=== PATIENT | female | born 1980 | race Caucasian/White ===

== ENCOUNTER 2019-02-27 12:40 | Emergency (ER) | payer OTHER ==
[~2019-02-27] VITALS: Ht 162.6 cm; Wt 127.0 kg
[~2019-02-27 12:40] MED LIST: TRAMADOL HCL50 M1; Z.0.DIFLUNISAL500 MG; Z.0.VALIUM10 MG; [UNRECOGNIZED DRUG - OTHER]
--- OUTSIDE RECORDS SUMMARY | 2019-02-27 12:43 | XMS REPORT | Summary of Care ---
Author Author [facility] Organization [facility] Neurosurgery [facility] Address Unknown Phone Unavailable Encounter LENO Carrera([place]) [phone] Date(s): 05/29/17 - 05/29/17 [facility] Neurosurgery [facility] [address], [address] [place] [phone] Discharge Disposition: Home or Self Care Attending Physician: Quinton Hare MD Referring Physician: Jaime Rust DO Vital Signs Most recent to 1 oldest [Reference Range]: Height 162.56 cm (05/29/17 10:15 AM) Temperature Oral 98.0 DegF [96.4-99.1 DegF] (05/29/17 10:15 AM) Blood Pressure 112/68 mmHg [90-140/60-90 mmHg] (05/29/17 10:15 AM) Peripheral Pulse 103 bpm Rate [60-100 bpm] *HI* (05/29/17 10:15 AM) Weight 128.636 kg (05/29/17 10:15 AM) Body Mass Index 48.68 m2 (05/29/17 10:15 AM) Problem List Condition Effective Dates Status Health Status Informant GERD Active (gastroesophageal reflux disease)(Confirmed) Migraine(Confirmed) Resolved Morbid Active obesity(Confirmed) Morbid Active obesity(Confirmed) Trigeminal Resolved neuralgia(Confirmed) Trigeminal Active neuralgia(Confirmed) Allergies, Adverse Reactions, Alerts Substance Reaction Severity Status penicillins Active amoxicillin Active Medications tramadol 50 mg oral tablet 50 mg=1 tab, PO, Q4H, prn pain, # 30 tab, 0 Refill(s), called to pharmacy Start Date: 05/29/17 Stop Date: 06/08/17 Status: Ordered Results No data available for this section Immunizations No data available for this section Procedures Procedure Date Related Diagnosis Body Site Appendectomy Caesarean section Cholecystectomy Tonsillectomy Social History Social History Type Response Substance Abuse Use: None. Alcohol Current, Frequency: 1-2 times per week. Smoking Status Current some day smoker; Type: Cigarettes; Previous treatment: None; Ready to change: No; Concerns about tobacco use in household: No; Exposure to Tobacco Smoke None; Cigarette Smoking Last 365 Days Yes; Reg Smoking Cessation Counseling No Assessment and Plan No data available for this section
--- OUTSIDE RECORDS SUMMARY | 2019-02-27 12:43 | XMS REPORT | Summary of Care ---
Author Author [facility] Organization [facility] [place] Address Unknown Phone Unavailable Encounter LENO Carrera([place]) [phone] Date(s): 08/13/17 - 08/13/17 [facility] [address], [address] [place], [place] [address] [phone] Discharge Disposition: Home or Self Care Attending Physician: Thu Sterling NP Referring Physician: Jaime Rust DO Vital Signs Most recent to 1 oldest [Reference Range]: Height 162.56 cm (08/13/17 10:57 AM) Temperature Oral 98 DegF [96.4-99.1 DegF] (08/13/17 10:57 AM) Blood Pressure 128/79 mmHg [90-140/60-90 mmHg] (08/13/17 10:57 AM) Peripheral Pulse 76 bpm Rate [60-100 bpm] (08/13/17 10:57 AM) Weight 132.636 kg (08/13/17 10:57 AM) Body Mass Index 50.19 m2 (08/13/17 10:57 AM) Problem List Condition Effective Dates Status Health Status Informant GERD Active (gastroesophageal reflux disease)(Confirmed) Migraine(Confirmed) Resolved Morbid Active obesity(Confirmed) Morbid Active obesity(Confirmed) Trigeminal Resolved neuralgia(Confirmed) Trigeminal Active neuralgia(Confirmed) Allergies, Adverse Reactions, Alerts Substance Reaction Severity Status penicillins Active amoxicillin Active Medications No Known Medications Results No data available for this section Immunizations No data available for this section Procedures Procedure Date Related Diagnosis Body Site Status Appendectomy Completed Caesarean section Completed Cholecystectomy Completed Microvascular decompression surgery of Completed cranial nerve Tonsillectomy Completed Social History Social History Type Response Substance Abuse Use: None. Alcohol Current Smoking Status Current every day smoker; Type: Cigarettes; Previous treatment: None; Ready to change: No; Concerns about tobacco use in household: No; Exposure to Tobacco Smoke pt smokes daily; Cigarette Smoking Last 365 Days Yes; Reg Smoking Cessation Counseling No entered on: 08/13/17 Assessment and Plan No data available for this section
--- OUTSIDE RECORDS SUMMARY | 2019-02-27 12:43 | XMS REPORT | Continuity of Care Document ---
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 KNEE ARTHROSCOPY Active 05/17/2018 [facility] TRIGEMINAL NERALGIA Active 03/29/2017 [facility] Muscle weakness (generalized) 01/14/2019 [facility] Difficulty in walking, not elsewhere classified 01/14/2019 [facility] Pain in left knee 01/14/2019 [facility] Stiffness of left knee, not elsewhere classified 01/14/2019 [facility] Gastroesophageal reflux disease (disorder) Active Problem 01/14/2019 [facility] [place] Migraine (disorder) Resolved Problem 01/14/2019 [facility] [place] Morbid obesity (disorder) Active Problem 01/14/2019 [facility] Trigeminal neuralgia (disorder) Resolved Problem 01/14/2019 [facility] Nicotine dependence, cigarettes, uncomplicated 12/11/2018 [facility] 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 (Same as: Tylenol) Inactive 05/24/2018 [facility] Roxicodone 5 mg, 1 tab, Route: PO, Drug form: TAB, Q4H, PRN Pain Score 4-6, Start date: 05/24/18 13:06:00 COPY MANAGER, Duration: 30 day, Stop date: 06/23/18 13:05:00 CSTNotes: (Same as: Roxicodone) Inactive 05/24/2018 [facility] Ondansetron 4 mg, Route: IVP, ONCE, Dosing Weight 128.864, kg, PRN Nausea & Vomiting, Start date: 05/24/18 12:52:00 COPY MANAGER Inactive 05/24/2018 [facility] Naloxone 0.1 mg, Route: SUB-Q, Q6H, Dosing Weight 128.864, kg, PRN Itching, Start date: 05/24/18 12:52:00 COPY MANAGER, Duration: 30 day, Stop date: 06/23/18 12:51:00 COPY MANAGER Inactive 05/24/2018 [facility] Meperidine 12.5 mg, Route: IVP, Q30Min, Dosing Weight 128.864, kg, PRN Other -See Comment, For shivering, Start date: 05/24/18 12:52:00 COPY MANAGER, Duration: 2 doses or times, Stop date: Limited # of times Inactive 05/24/2018 [facility] Flumazenil 0.2 mg, Route: IVP, PRN, Dosing Weight 128.864, kg, PRN Benzodiazepine Reversal, Initial dose, Start date: 05/24/18 12:52:00 COPY MANAGER, Duration: 30 day, Stop date: 06/23/18 12:51:00 COPY MANAGER Inactive 05/24/2018 [facility] Oxycodone 10 mg, Route: PO, Drug form: TAB, Q4H, Dosing Weight 128.864, kg, PRN Pain Score 7-10, Start date: 05/24/18 12:52:00 COPY MANAGER, Duration: 30 day, Stop date: 06/23/18 12:51:00 COPY MANAGER Inactive 05/24/2018 [facility] Fentanyl 25 microgram, Route: IVP, Q5Min, Dosing Weight 128.864, kg, PRN Pain Score 4-6, Priority: Routine, Start date: 05/24/18 12:52:00 COPY MANAGER, Duration: 4 doses or times, Stop date: Limited # of times Inactive 05/24/2018 [facility] Hydromorphone 0.5 mg, Route: IVP, Q5Min, Dosing Weight 128.864, kg, PRN Pain Score 7-10, Start date: 05/24/18 12:52:00 COPY MANAGER, Duration: 4 doses or times, Stop date: Limited # of times Inactive 05/24/2018 [facility] Hydralazine 10 mg, Route: IVP, Q20Min, Dosing Weight 128.864, kg, PRN Elevated BP, Start date: 05/24/18 12:52:00 COPY MANAGER, Duration: 2 doses or times, Stop date: Limited # of times Inactive 05/24/2018 [facility] Labetalol 10 mg, Route: IVP, Q5Min, Dosing Weight 128.864, kg, PRN Elevated BP, Start date: 05/24/18 12:52:00 COPY MANAGER, Duration: 5 doses or times, Stop date: Limited # of times Inactive 05/24/2018 [facility] Diphenhydramine 12.5 mg, Route: IVP, Drug form: INJ, Q6H, Dosing Weight 128.864, kg, PRN Itching, Start date: 05/24/18 12:52:00 COPY MANAGER, Duration: 30 day, Stop date: 06/23/18 12:51:00 COPY MANAGER Inactive 05/24/2018 [facility] Albuterol 0.83 MG/ML Inhalant Solution 2.49 mg, Route: NEB, Q20Min, Dosing Weight 128.864, kg, PRN Wheezing, Priority: STAT, Start date: 05/24/18 12:52:00 COPY MANAGER, Duration: 30 day, Stop date: 06/23/18 12:51:00 COPY MANAGER Inactive 05/24/2018 [facility] Promethazine 6.25 mg, Route: IVPB, ONCE, Dosing Weight 128.864, kg, PRN Nausea & Vomiting, Start date: 05/24/18 12:52:00 COPY MANAGER Inactive 05/24/2018 [facility] 72 HR Scopolamine 0.0139 MG/HR Transdermal Patch 1 patch, Route: TOP, Drug Form: ERFILM, Dosing Weight 128.864, kg, ONCE, Apply behind ear. Avoid use in elderly., Start date: 05/24/18 12:52:00 COPY MANAGER, Stop date: 05/24/18 12:52:00 COPY MANAGER Inactive 05/24/2018 [facility] neostigmine (ANES) Route: IV, Drug form: INJ, ONCE, Stop date: 05/24/18 12:49:00 COPY MANAGER Inactive 05/24/2018 [facility] glycopyrrolate (ANES) Route: IV, Drug form: INJ, ONCE, Stop date: 05/24/18 12:49:00 COPY MANAGER Inactive 05/24/2018 [facility] ketOROLAC (ANES) IV, ONCE Inactive 05/24/2018 [facility] Zofran 4 mg, 2 mL, Route: IV, Drug form: INJ, Q8H, Dosing Weight 128.864, kg, PRN Nausea, Start date: 05/24/18 12:27:00 COPY MANAGER, Duration: 30 day, Stop date: 06/23/18 12:26:00 CSTNotes: (Same as: Zofran) MEDICATION WASTE Product Size: 4 mg Product Wasted: ___ mg Inactive 05/24/2018 [facility] Acetaminophen 325 MG / Oxycodone Hydrochloride 5 MG Oral Tablet [Percocet 5/325] 2 tab, Route: PO, Drug Form: TAB, Dosing Weight 128.864, kg, Q4H, PRN Pain, Start date: 05/24/18 12:27:00 COPY MANAGER, Duration: 30 day, Stop date: 06/23/18 12:26:00 COPY MANAGER Inactive 05/24/2018 [facility] Morphine 2 mg, 1 mL, Route: IVP, Drug form: SOLN, Q3H, Dosing Weight 128.864, kg, PRN Pain Score 1-3, Start date: 05/24/18 12:27:00 COPY MANAGER, Duration: 30 day, Stop date: 06/23/18 12:26:00 COPY MANAGER Inactive 05/24/2018 [facility] rocuronium (ANES) Route: IV, Drug form: INJ, ONCE, Stop date: 05/24/18 11:24:00 COPY MANAGER Inactive 05/24/2018 [facility] succinylcholine (ANES) Route: IV, Drug form: INJ, ONCE, Stop date: 05/24/18 11:20:00 COPY MANAGER Inactive 05/24/2018 [facility] dexamethasone (ANES) Route: IV, Drug form: INJ, ONCE, Stop date: 05/24/18 11:20:00 COPY MANAGER Inactive 05/24/2018 [facility] Cleocin Phosphate (ANES) Route: IV, Drug form: INJ, ONCE, Stop date: 05/24/18 11:20:00 COPY MANAGER Inactive 05/24/2018 [facility] acetaminophen (ANES) Route: IV, Drug form: INJ, ONCE, Stop date: 05/24/18 11:20:00 COPY MANAGER Inactive 05/24/2018 [facility] midazolam (ANES) Route: IV, Drug form: SOLN, ONCE, Stop date: 05/24/18 11:19:00 COPY MANAGER Inactive 05/24/2018 [facility] propofol (ANES) Route: IV, Drug form: INJ, ONCE, Stop date: 05/24/18 11:19:00 COPY MANAGER Inactive 05/24/2018 [facility] lidocaine (ANES) Route: IV, Drug form: INJ, ONCE, Stop date: 05/24/18 11:19:00 COPY MANAGER Inactive 05/24/2018 [facility] fentaNYL (ANES) Route: IV, Drug form: INJ, ONCE, Stop date: 05/24/18 11:19:00 COPY MANAGER Inactive 05/24/2018 [facility] ondansetron (ANES) Route: IV, Drug form: INJ, ONCE, Stop date: 05/24/18 11:14:00 COPY MANAGER Inactive 05/24/2018 [facility] Lactated Ringers Injection IV (ANES) 1000 mL Route: IV, Total Volume: 1,000, Start date: 05/24/18 10:32:00 COPY MANAGER, Stop date: 05/24/18 11:32:00 COPY MANAGER Inactive 05/24/2018 [facility] 72 HR Scopolamine 0.0139 MG/HR Transdermal Patch 1 patch, Route: TOP, Dosing Weight 129.091, kg, ONCE, Start date: 05/24/18 9:10:00 COPY MANAGER, Stop date: 05/24/18 9:10:00 COPY MANAGER Inactive 05/24/2018 [facility] Calcium Chloride 0.0014 MEQ/ML / Potassium Chloride 0.004 MEQ/ML / Sodium Chloride 0.103 MEQ/ML / Sodium Lactate 0.028 MEQ/ML Injectable Solution 1,000 mL, Rate: 25 ml/hr, Infuse over: 40 hr, Route: IV, Dosing Weight 129.091 kg, Total Volume: 1,000, Start date: 05/24/18 8:49:00 COPY MANAGER, Duration: 30 day, Stop date: 06/23/18 8:48:00 COPY MANAGER, 2.46, m2 Inactive 05/24/2018 [facility] ceFAZolin + Sodium Chloride 0.9% IV 100 mL 2 gm, Route: IVPB, ONCALL, Start date: 05/24/18 6:00:00 COPY MANAGER, Duration: 1 doses or times, ABX Indication: Surgical ProphylaxisNotes: (Same As: Jessica Ochoa) MEDICATION WASTE Product Size: 1000 mg Product Wasted: ___ mg Inactive 05/24/2018 [facility] diazepam 10 mg oral tablet 10 mg=1 tab, PO, TID, 0 Refill(s) Active 05/23/2018 [facility] Divalproex Sodium 500 MG Enteric Coated Tablet 500 mg=1 tab, PO, TID, 0 Refill(s) Active 05/23/2018 [facility] amitriptyline 25 mg oral tablet 25 mg=1 tab, PO, Bedtime, 0 Refill(s) Active 05/23/2018 [facility] tramadol hydrochloride 50 MG Oral Tablet 50 mg=1 tab, PO, Q4H, prn pain, # 30 tab, 0 Refill(s), called to pharmacy Active 05/29/2017 [facility] Flexeril 10 mg, 1 tab, Route: PO, Drug form: TAB, TID, Dosing Weight 127.273, kg, PRN Spasm, Start date: 05/17/17 10:38:00 COPY MANAGER, Duration: 30 day, Stop date: 06/16/17 10:37:00 CSTNotes: (Same As: Flexeril) No Longer Active 05/17/2017 [facility] heparin sodium, porcine 2500 UNT/ML Injectable Solution 5,000 unit, 1 mL, Route: SUB-Q, Drug form: INJ, Q8H, Dosing Weight 127.273, kg, Start date: 05/17/17 8:00:00 COPY MANAGER, Duration: 30 day, Stop date: 06/16/17 0:00:00 CSTNotes: porcine heparin No Longer Active 05/17/2017 [facility] Cyclobenzaprine hydrochloride 10 MG Oral Tablet [Flexeril] 10 mg, PO, TID, PRN as needed for muscle spasm, # 30 tab, 0 Refill(s) No Longer Active 05/17/2017 [facility] Docusate Sodium 100 MG Oral Capsule 100 mg, PO, Q12H, PRN as needed for constipation, # 60 tab, 0 Refill(s) Active 05/17/2017 [facility] Ondansetron 4 MG Oral Tablet [Zofran] 4 mg=1 tab, PO, Q8H, PRN Nausea/vomiting, # 30 tab, 0 Refill(s) Active 05/17/2017 [facility] Acetaminophen 325 MG / Hydrocodone Bitartrate 10 MG Oral Tablet [Clemons 10/325] 1 tab, PO, Q4H, PRN for pain, X 10 day, # 60 tab, 0 Refill(s) Active 05/17/2017 [facility] Promethazine Hydrochloride 12.5 MG Oral Tablet [Phenergan] 12.5 mg=1 tab, PO, Q4H, PRN Nausea & Vomiting, # 60 tab, 0 Refill(s) Active 05/17/2017 [facility] tramadol hydrochloride 50 MG Oral Tablet 50 mg=1 tab, PO, Q4H, PRN Pain, X 10 day, # 60 tab, 0 Refill(s) Active 05/17/2017 [facility] Lipitor 20 mg, 1 tab, Route: PO, Drug form: TAB, Bedtime, Dosing Weight 127.273, kg, Start date: 05/16/17 21:00:00 COPY MANAGER, Duration: 30 day, Stop date: 06/14/17 21:00:00 CSTNotes: (Same As: Lipitor) No Longer Active 05/17/2017 [facility] vancomycin (SCIP) 1,000 mg, Route: IVPB, Drug form: INJ, [id number], Dosing Weight 127.273, kg, TIME CRITICAL MEDICATION, Start date: 05/16/17 20:00:00 COPY MANAGER, Duration: 2 doses or times, Stop date: 05/17/17 8:00:00 COPY MANAGER, ABX Indication: Surgical ProphylaxisNotes: TIME CRITICAL MEDICATION (Same As: Vancocin) Infusion rate 2001 mg: infuse over 2.5 hours MEDICATION WASTE Product Size: 1000 mg Product Wasted: ___ mg No Longer Active 05/17/2017 [facility] Depakote 250 mg oral enteric coated tablet 500 mg, 2 tab, Route: PO, Drug form: ECTAB, ONCE, Priority: NOW, Start date: 05/16/17 17:28:00 COPY MANAGER, Stop date: 05/16/17 17:28:00 CSTNotes: (Same as: Depakote Delayed Release) Do not confuse with the extended-release tablet. Delayed absorption, enteric coated tablet. Do not crush Inactive 05/16/2017 [facility] Depakote 250 mg oral enteric coated tablet 750 mg=3 tab, PO, BID Active 05/16/2017 [facility] glycopyrrolate (ANES) Route: IV, Drug form: INJ, ONCE, Stop date: 05/16/17 12:31:00 COPY MANAGER Inactive 05/16/2017 [facility] neostigmine (ANES) Route: IV, Drug form: INJ, ONCE, Stop date: 05/16/17 12:31:00 COPY MANAGER Inactive 05/16/2017 [facility] Promethazine 6.25 mg, Route: IVPB, ONCE, Dosing Weight 127.273, kg, PRN Nausea & Vomiting, Start date: 05/16/17 12:23:00 COPY MANAGER Inactive 05/16/2017 [facility] ondansetron (ANES) Route: IV, Drug form: INJ, ONCE, Stop date: 05/16/17 11:48:00 COPY MANAGER Inactive 05/16/2017 [facility] famotidine (ANES) Route: IV, Drug form: INJ, ONCE, Stop date: 05/16/17 11:23:00 COPY MANAGER Inactive 05/16/2017 [facility] acetaminophen (ANES) 10 mg Route: IV, Drug form: INJ, Start date: 05/16/17 10:23:00 COPY MANAGER, Stop date: 05/16/17 11:23:00 COPY MANAGER Inactive 05/16/2017 [facility] Hydromorphone 0.5 mg, 0.25 mL, Route: IVP, Drug form: INJ, Q5Min, Dosing Weight 127.273, kg, PRN Pain Score 7-10, Start date: 05/16/17 9:33:00 COPY MANAGER, Duration: 4 doses or times, Stop date: 05/17/17 0:00:00 CSTNotes: Same as Dilaudid Inactive 05/16/2017 [facility] Flumazenil 0.2 mg, 2 mL, Route: IVP, Drug form: INJ, PRN, Dosing Weight 127.273, kg, PRN Benzodiazepine Reversal, Initial dose, Start date: 05/16/17 9:33:00 COPY MANAGER, Duration: 30 day, Stop date: 06/15/17 9:32:00 CS TNotes: (Same as: Romazicon) Inactive 05/16/2017 [facility] Dexamethasone 4 mg, 1 mL, Route: IVP, Drug form: INJ, ONCE, Dosing Weight 127.273, kg, PRN Nausea & Vomiting, Start date: 05/16/17 9:33:00 CSTNotes: Concentration: 4mg/ml Inactive 05/16/2017 [facility] Ondansetron 4 mg, 2 mL, Route: IVP, Drug form: INJ, ONCE, Dosing Weight 127.273, kg, PRN Nausea & Vomiting, Start date: 05/16/17 9:33:00 CSTNotes: (Same as: Zofran) MEDICATION WASTE Product Size: 4 mg Product Wasted: ___ mg Inactive 05/16/2017 [facility] Diphenhydramine 12.5 mg, 0.25 mL, Route: IVP, Drug form: INJ, Q6H, Dosing Weight 127.273, kg, PRN Itching, Start date: 05/16/17 9:33:00 COPY MANAGER, Duration: 30 day, Stop date: 06/15/17 9:32:00 CSTNotes: (Same as: Benadryl) Inactive 05/16/2017 [facility] Naloxone 0.4 mg, 1 mL, Route: IVP, Drug form: INJ, Q2MIN, Dosing Weight 127.273, kg, PRN Narcotic Reversal, Start date: 05/16/17 9:33:00 COPY MANAGER, Duration: 8 doses or times, Stop date: 05/17/17 0:00:00 CSTNotes: Same as Narcan Inactive 05/16/2017 [facility] Oxycodone 5 mg, 1 tab, Route: PO, Drug form: TAB, Q4H, Dosing Weight 127.273, kg, PRN Pain Score 4-6, Start date: 05/16/17 9:33:00 COPY MANAGER, Duration: 30 day, Stop date: 06/15/17 9:32:00 CSTNotes: (Same as: Roxicodone) Inactive 05/16/2017 [facility] Hydralazine 10 mg, 0.5 mL, Route: IVP, Drug form: INJ, Q20Min, Dosing Weight 127.273, kg, PRN Elevated BP, Start date: 05/16/17 9:33:00 COPY MANAGER, Duration: 2 doses or times, Stop date: 05/17/17 0:00:00 CSTNotes: (Same as: Apresoline) Push over 5 minutes Inactive 05/16/2017 [facility] Labetalol 10 mg, 2 mL, Route: IVP, Drug form: INJ, Q5Min, Dosing Weight 127.273, kg, PRN Elevated BP, Start date: 05/16/17 9:33:00 COPY MANAGER, Duration: 5 doses or times, Stop date: 05/17/17 0:00:00 COPY MANAGER Inactive 05/16/2017 [facility] dexamethasone (ANES) Route: IV, Drug form: INJ, ONCE, Stop date: 05/16/17 9:23:00 COPY MANAGER Inactive 05/16/2017 [facility] midazolam (ANES) Route: IV, Drug form: SOLN, ONCE, Stop date: 05/16/17 9:18:00 COPY MANAGER Inactive 05/16/2017 [facility] lidocaine (ANES) Route: IV, Drug form: INJ, ONCE, Stop date: 05/16/17 9:18:00 COPY MANAGER Inactive 05/16/2017 [facility] remifentanil (ANES) Route: IV, Drug form: INJ, ONCE, Stop date: 05/16/17 9:18:00 COPY MANAGER Inactive 05/16/2017 [facility] propofol (ANES) Route: IV, Drug form: INJ, ONCE, Stop date: 05/16/17 9:13:00 COPY MANAGER Inactive 05/16/2017 [facility] rocuronium (ANES) Route: IV, Drug form: INJ, ONCE, Stop date: 05/16/17 9:13:00 COPY MANAGER Inactive 05/16/2017 [facility] fentaNYL (ANES) Route: IV, Drug form: INJ, ONCE, Stop date: 05/16/17 9:13:00 COPY MANAGER Inactive 05/16/2017 [facility] ePHEDrine (ANES) Route: IV, Drug form: INJ, ONCE, Stop date: 05/16/17 9:08:00 COPY MANAGER Inactive 05/16/2017 [facility] phenylephrine (ANES) Route: IV, Drug form: INJ, ONCE, Stop date: 05/16/17 9:08:00 COPY MANAGER Inactive 05/16/2017 [facility] Saline Flush 0.9% 10 ml, Route: IVP, Drug Form: INJ, Dosing Weight 127.273, kg, Q12H, Start date: 05/16/17 9:00:00 COPY MANAGER, Duration: 30 day, Stop date: 06/14/17 21:00:00 CSTNotes: (Same as: BD Posiflush) No Longer Active 05/16/2017 [facility] Docusate 100 mg, 1 cap, Route: PO, Drug form: CAP, Q12H, Dosing Weight 127.273, kg, Start date: 05/16/17 9:00:00 COPY MANAGER, Duration: 30 day, Stop date: 06/14/17 21:00:00 CSTNotes: (Same as: Colace) (Do Not Crush) No Longer Active 05/16/2017 [facility] sennosides, LONGTERM 8.6 mg, 1 tab, Route: PO, Drug Form: TAB, Dosing Weight 127.273, kg, Q12H, Start date: 05/16/17 9:00:00 COPY MANAGER, Duration: 30 day, Stop date: 06/14/17 21:00:00 CSTNotes: (Same as: Senokot) No Longer Active 05/16/2017 [facility] Vancomycin 1,000 mg, Route: IVPB, Drug form: INJ, [id number], Dosing Weight 127.273, kg, TIME CRITICAL MEDICATION, Start date: 05/16/17 9:00:00 COPY MANAGER, Duration: 2 doses or times, Stop date: 05/16/17 21:00:00 COPY MANAGER, ABX I ndication: Surgical ProphylaxisNotes: TIME CRITICAL MEDICATION (Same As: Vancocin) Infusion rate 2001 mg: infuse over 2.5 hours MEDICATION WASTE Product Size: 1000 mg Product Wasted: ___ mg Inactive 05/16/2017 [facility] Protonix 40 mg, 1 tab, Route: PO, Drug form: ECTAB, Daily, Start date: 05/16/17 9:00:00 COPY MANAGER, Duration: 30 day, Stop date: 06/14/17 9:00:00 CSTNotes: Tablet should not be chewed or crushed. (Same as: Protonix) No Longer Active 05/16/2017 [facility] Prilosec 20 mg, Route: PO, Drug form: DRC, Daily, Dosing Weight 127.273, kg, Start date: 05/16/17 9:00:00 COPY MANAGER, Duration: 30 day, Stop date: 06/14/17 9:00:00 COPY MANAGER Inactive 05/16/2017 [facility] Lexapro 20 mg, 2 tab, Route: PO, Drug form: TAB, Daily, Dosing Weight 127.273, kg, Start date: 05/16/17 9:00:00 COPY MANAGER, Duration: 30 day, Stop date: 06/14/17 9:00:00 CSTNotes: (Same as: Lexapro) No Longer Active 05/16/2017 [facility] divalproex sodium 250 mg oral enteric coated tablet (Depakote) 750 mg, 3 tab, Route: PO, Drug form: ECTAB, BID, Dosing Weight 127.273, kg, Start date: 05/16/17 9:00:00 COPY MANAGER, Stop date: 06/14/17 20:00:00 CSTNotes: (Same as: Depakote Delayed Release) Do not confuse with the extended-release tablet. Delayed absorption, enteric coated tablet. No Longer Active 05/16/2017 [facility] propofol (ANES) 10 mg Route: IV, Drug form: INJ, Start date: 05/16/17 8:38:00 COPY MANAGER, Stop date: 05/16/17 9:38:00 COPY MANAGER Inactive 05/16/2017 [facility] Sodium Chloride 0.9% IV (ANES) 1000 mL Route: IV, Total Volume: 1,000, Start date: 05/16/17 8:00:00 COPY MANAGER, Stop date: 05/16/17 9:00:00 COPY MANAGER Inactive 05/16/2017 [facility] remifentanil (ANES) 2 mg Route: IV, Drug form: INJ, Start date: 05/16/17 7:55:00 COPY MANAGER, Stop date: 05/16/17 8:55:00 COPY MANAGER Inactive 05/16/2017 [facility] Sodium Chloride 0.9% IV (ANES) 235 mL + vancomycin (ANES) 1500 mg Route: IV, Drug form: INJ, Start date: 05/16/17 7:45:00 COPY MANAGER, Stop date: 05/16/17 8:45:00 COPY MANAGER Inactive 05/16/2017 [facility] dexmedetomidine (ANES) 200 microgram Route: IV, Drug form: INJ, Start date: 05/16/17 7:45:00 COPY MANAGER, Stop date: 05/16/17 8:45:00 COPY MANAGER Inactive 05/16/2017 [facility] tramadol hydrochloride 50 MG Oral Tablet 50 mg, 1 tab, Route: PO, Drug form: TAB, Q4H, Dosing Weight 127.273, kg, PRN Pain Score 1-3, Start date: 05/16/17 7:32:00 COPY MANAGER, Duration: 30 day, Stop date: 06/15/17 7:31:00 CSTNotes: (Same As: Ultram) No Longer Active 05/16/2017 [facility] Dilaudid 0.5 mg, 0.25 mL, Route: IVP, Drug form: INJ, Q4H, Dosing Weight 127.273, kg, PRN Pain Score 7-10, Start date: 05/16/17 7:32:00 COPY MANAGER, Stop date: 06/15/17 7:31:00 CSTNotes: Same as Dilaudid No Longer Active 05/16/2017 [facility] Saline Flush 0.9% 10 ml, Route: IVP, Drug Form: INJ, Dosing Weight 127.273, kg, PRN, PRN Line Flush, Start date: 05/16/17 7:32:00 COPY MANAGER, Duration: 30 day, Stop date: 06/15/17 7:31:00 CSTNotes: (Same as: BD Posiflush) No Longer Active 05/16/2017 [facility] Bisacodyl 10 mg, 1 supp, Route: VT, Drug form: SUPP, Daily, Dosing Weight 127.273, kg, PRN Constipation, Start date: 05/16/17 7:32:00 COPY MANAGER, Duration: 30 day, Stop date: 06/15/17 7:31:00 CSTNotes: (Same As: Dulcolax, Bisco-Lax) No Longer Active 05/16/2017 [facility] Promethazine 12.5 mg, 0.5 mL, Route: IVPB, Drug form: INJ, Q6H, Dosing Weight 127.273, kg, PRN Nausea & Vomiting, Start date: 05/16/17 7:32:00 COPY MANAGER, Duration: 30 day, Stop date: 06/15/17 7:31:00 CSTNotes: Do not give IV push. (Same as: Phenergan) No Longer Active 05/16/2017 [facility] Ondansetron 4 mg, 2 mL, Route: IVP, Drug form: INJ, Q8H, Dosing Weight 127.273, kg, PRN Nausea & Vomiting, Start date: 05/16/17 7:32:00 COPY MANAGER, Duration: 30 day, Stop date: 06/15/17 7:31:00 CSTNotes: (Same as: Zofran) MEDICATION WASTE Product Size: 4 mg Product Wasted: ___ mg No Longer Active 05/16/2017 [facility] Acetaminophen 650 mg, 2 tab, Route: PO, Drug form: TAB, Q4H, Dosing Weight 127.273, kg, PRN Pain 1-3/Temp > 99.5 F, Start date: 05/16/17 7:32:00 COPY MANAGER, Duration: 30 day, Stop date: 06/15/17 7:31:00 CSTNotes: Do not exceed 4 gm/day. (Same as: Tylenol) No Longer Active 05/16/2017 [facility] Sodium Chloride 0.9% IV 1,000 mL 1,000 mL, Rate: 75 ml/hr, Infuse over: 13.3 hr, Route: IV, Dosing Weight 127.273 kg, Total Volume: 1,000, Start date: 05/16/17 7:32:00 COPY MANAGER, Stop date: 06/15/17 7:31:00 COPY MANAGER, 2.44, m2 No Longer Active 05/16/2017 [facility] Acetaminophen 325 MG / Hydrocodone Bitartrate 10 MG Oral Tablet 1 tab, Route: PO, Drug Form: TAB, Dosing Weight 127.273, kg, Q4H, PRN Pain Score 4-6, Start date: 05/16/17 7:32:00 COPY MANAGER, Duration: 30 day, Stop date: 06/15/17 7:31:00 CSTNotes: Do not exceed 4gm/day of acetaminophen. (Same as: Clemons 325/10) No Longer Active 05/16/2017 [facility] Acetaminophen 325 MG / Hydrocodone Bitartrate 5 MG Oral Tablet 1 tab, Route: PO, Drug Form: TAB, Dosing Weight 127.273, kg, Q4H, PRN Pain Score 1-3, Start date: 05/16/17 7:32:00 COPY MANAGER, Duration: 30 day, Stop date: 06/15/17 7:31:00 CSTNotes: (Same as: Clemons 325/5) Do not exceed 4gm/day of acetaminophen. No Longer Active 05/16/2017 [facility] Lactated Ringers Injection IV (ANES) 1000 mL Route: IV, Total Volume: 1,000, Start date: 05/16/17 7:26:00 COPY MANAGER, Stop date: 05/16/17 8:26:00 COPY MANAGER Inactive 05/16/2017 [facility] vancomycin 2 gm, 500 mL, Route: IVPB, Drug form: SOLN, PRE OP, Start date: 05/16/17 0:00:00 COPY MANAGER, Duration: 1 day, Stop date: 05/16/17 23:59:00 COPY MANAGER, ABX Indication: Surgical ProphylaxisNotes: TIME CRITICAL MEDICATI ON Same as: Vancocin Infusion rate 2001 mg: infuse over 2.5 hours No Longer Active 05/16/2017 [facility] Allergies, Adverse Reactions, Alerts Substance Category Reaction Severity Reaction type Status Date Reported Comments Source penicillins Assertion Drug allergy Active [facility] amoxicillin Assertion Propensity to adverse reactions to drug Active [facility] [place] Immunizations No Data Provided for This Section Results Order Name Results Value Reference Range Date Interpretation Comments Source URINE CHEM U Preg Negative (05/23/18 3:24 PM) Negative 05/23/2018 [facility] ELECTROLYTES AGAP 19.1 10.0 - 20.0 05/16/2017 [facility] ELECTROLYTES eGFR 107 05/16/2017 Result Comment: The eGFR is calculated using the CKD-EPI formula. In most young, healthy individuals the eGFR will be >90 mL/min/1.73m2. The eGFR declines with age. An eGFR of 60-89 may be normal in some populations, particularly the elderly, for whom the CKD-EPI formula has not been extensively validated. Use of the eGFR is not recommended in the following populations:

Individuals with unstable creatinine concentrations, including patients and those with serious co-morbid conditions.

Patients with extremes in muscle mass or diet.

The data above are obtained from the National Kidney Disease Education Program (NKDEP) which additionally recommends that when the eGFR is used in patients with extremes of body mass index for purposes of drug dosing, the eGFR should be multiplied by the estimated BMI. [facility] ELECTROLYTES CO2 19 24 - 32 05/16/2017 [facility] ELECTROLYTES Calcium Lvl 7.4 8.5 - 10.5 05/16/2017 [facility] ELECTROLYTES Creatinine Lvl 0.73 0.50 - 1.40 05/16/2017 [facility] ELECTROLYTES BUN 17 7 - 22 05/16/2017 [facility] ELECTROLYTES Glucose Lvl 168 70 - 99 05/16/2017 [facility] ELECTROLYTES Sodium Lvl 138 135 - 145 05/16/2017 [facility] ELECTROLYTES Chloride Lvl 105 95 - 109 05/16/2017 [facility] ELECTROLYTES Potassium Lvl 5.1 3.5 - 5.1 05/16/2017 [facility] HEMATOLOGY Monocytes # 0.3 0.0 - 0.8 05/16/2017 [facility] HEMATOLOGY Lymphocytes 9.6 20.0 - 40.0 05/16/2017 [facility] HEMATOLOGY Monocytes 2.5 2.0 - 12.0 05/16/2017 [facility] HEMATOLOGY Eosinophils 0.2 0.0 - 4.0 05/16/2017 [facility] HEMATOLOGY Lymphocytes # 1.1 1.0 - 5.5 05/16/2017 [facility] HEMATOLOGY Basophils 0.2 0.0 - 1.0 05/16/2017 [facility] HEMATOLOGY Segs-Bands # 10.2 1.5 - 8.1 05/16/2017 [facility] HEMATOLOGY Segs 87.5 45.0 - 75.0 05/16/2017 [facility] HEMATOLOGY MPV 7.4 7.4 - 10.4 05/16/2017 [facility] HEMATOLOGY Platelet 191 133 - 450 05/16/2017 [facility] HEMATOLOGY RDW 15.6 11.5 - 14.5 05/16/2017 [facility] HEMATOLOGY MCHC 32.2 32.0 - 36.0 05/16/2017 [facility] HEMATOLOGY WBC 11.7 3.7 - 10.4 05/16/2017 [facility] HEMATOLOGY MCH 27.6 27.0 - 31.0 05/16/2017 [facility] HEMATOLOGY Hct 33.3 36.0 - 48.0 05/16/2017 [facility] HEMATOLOGY MCV 85.8 80.0 - 98.0 05/16/2017 [facility] HEMATOLOGY Hgb 10.7 12.0 - 16.0 05/16/2017 [facility] HEMATOLOGY RBC 3.88 4.20 - 5.40 05/16/2017 [facility] BLOOD BANK RESULTS ABO/Rh O POS 05/16/2017 [facility] BLOOD BANK RESULTS Antibody Scrn Negative (05/16/17 5:56 AM) 05/16/2017 [facility] Pathology Reports No Data Provided for This Section Diagnostic Reports No Data Provided for This Section Consultation Notes No Data Provided for This Section Discharge Summaries No Data Provided for This Section History and Physicals No Data Provided for This Section Vital Signs Vital Sign Value Date Comments Source Systolic (mm Hg) 106 05/24/2018 [facility] Diastolic (mm Hg) 68 05/24/2018 [facility] Respitory Rate 13 05/24/2018 [facility] Systolic (mm Hg) 103 05/24/2018 [facility] Diastolic (mm Hg) 54 05/24/2018 [facility] Respitory Rate 12 05/24/2018 [facility] Systolic (mm Hg) 121 05/24/2018 [facility] Diastolic (mm Hg) 53 05/24/2018 [facility] Respitory Rate 28 05/24/2018 [facility] BMI Calculated 48.76 05/24/2018 [facility] Weight 128.864 05/24/2018 [facility] Temperature Oral (F) 98.2 F 05/23/2018 [facility] Heart Rate 105 05/23/2018 [facility] Height 162.56 cm 05/23/2018 [facility] BMI Calculated 50.19 08/13/2017 [facility] Weight 132.636 08/13/2017 [facility] Height 162.56 cm 08/13/2017 [facility] Temperature Oral (F) 98 F 08/13/2017 [facility] Neuro Heart Rate 76 08/13/2017 [facility] Systolic (mm Hg) 128 08/13/2017 [facility] Diastolic (mm Hg) 79 08/13/2017 [facility] Height 162.56 cm 05/29/2017 [facility] BMI Calculated 48.68 05/29/2017 [facility] Weight 128.636 05/29/2017 [facility] Systolic (mm Hg) 112 05/29/2017 [facility] Diastolic (mm Hg) 68 05/29/2017 [facility] Heart Rate 103 05/29/2017 [facility] Temperature Oral (F) 98.0 F 05/29/2017 [facility] Neuro Heart Rate 103 05/18/2017 [facility] Temperature Oral (F) 99.1 F 05/18/2017 [facility] Respitory Rate 16 05/18/2017 [facility] Systolic (mm Hg) 116 05/18/2017 [facility] Diastolic (mm Hg) 75 05/18/2017 [facility] Temperature Oral (F) 100.1 F 05/18/2017 [facility] Systolic (mm Hg) 115 05/18/2017 [facility] Diastolic (mm Hg) 71 05/18/2017 [facility] Respitory Rate 16 05/18/2017 [facility] Heart Rate 111 05/18/2017 [facility] Respitory Rate 16 05/18/2017 [facility] Systolic (mm Hg) 110 05/18/2017 [facility] Diastolic (mm Hg) 73 05/18/2017 [facility] Temperature Oral (F) 98.6 F 05/18/2017 [facility] Heart Rate 105 05/18/2017 [facility] BMI Calculated 48.16 05/17/2017 [facility] Weight 127.273 05/17/2017 [facility] Height 162.56 cm 05/17/2017 [facility] BMI Calculated 48.16 05/15/2017 [facility] Weight 127.273 05/15/2017 [facility] Height 162.56 cm 05/15/2017 [facility] Systolic (mm Hg) 125 05/15/2017 [facility] Diastolic (mm Hg) 85 05/15/2017 [facility] Temperature Oral (F) 98.1 F 05/15/2017 [facility] Heart Rate 92 05/15/2017 [facility] Systolic (mm Hg) 141 05/08/2017 [facility] Diastolic (mm Hg) 91 05/08/2017 [facility] BMI Calculated 48.16 05/08/2017 [facility] Weight 127.273 05/08/2017 [facility] Height 162.56 cm 05/08/2017 [facility] Encounters Location Location Details Encounter Type Encounter Number Reason For Visit Attending Provider ADM Date DC Date Status Source Outpatient [id number] ERROL GIBSON 01/10/2017 Active [facility] Outpatient [id number] JONG HARE 02/20/2017 Active [facility] Phone Message [id number] 05/01/2017 05/03/2017 [facility] Phone Message [id number] 05/14/2017 05/16/2017 [facility] Outpatient [id number] JONG HARE 05/15/2017 Active [facility] Outpatient [id number] Jong Hare 05/15/2017 05/16/2017 [facility] Outpatient [id number] JONG HARE 05/16/2017 Active [facility] Inpatient [id number] Jong Hare 05/16/2017 05/18/2017 [facility] Outpatient [id number] Jong Hare 05/16/2017 05/17/2017 [facility] Phone Message [id number] 05/23/2017 05/25/2017 [facility] Outpatient [id number] JONG HARE 05/29/2017 Active [facility] Outpatient [id number] Jong Hare 05/29/2017 05/30/2017 [facility] Phone Message [id number] 06/15/2017 06/17/2017 [facility] Phone Message [id number] 2017 08/12/2017 [facility] Outpatient [id number] SYDNI LIM 08/13/[address] [facility] Outpatient [id number] Jaime Rust 08/13/2017 08/14/2017 [facility] Day Surgery [id number] Nacho Juárez Jr 05/24/2018 05/24/2018 [facility] OP Therapy Patients [id number] Nacho Juárez Jr 05/28/2018 06/27/2018 [facility] Procedures Procedure Code Date Perfomer Comments Source Appendectomy [id number] [facility] [place] Caesarean section [id number] [facility] Cholecystectomy [id number] [facility] [place] Microvascular decompression surgery of cranial nerve [id number] [facility] [place] Tonsillectomy [id number] [facility] Assessment and Plan No Data Provided for This Section Plan of Care No Data Provided for This Section Social History Social History Date Source Social History TypeResponse Substance Abuse Use: None. Alcohol Current Smoking Status Current every day smoker; Type: Cigarettes; Previous treatment: None; Ready to change: No; Concerns about tobacco use in household: No; Exposure to Tobacco Smoke pt smokes daily; Cigarette Smoking Last 365 Days Yes; Reg Smoking Cessation Counseling No entered on: 08/13/17 05/08/2017 [facility] Social History TypeResponse Substance Abuse Use: None. Alcohol Current, Frequency: 1-2 times per week. Smoking Status Current some day smoker; Type: Cigarettes; Previous treatment: None; Ready to change: No; Concerns about tobacco use in household: No; Exposure to Tobacco Smoke None; Cigarette Smoking Last 365 Days Yes; Reg Smoking Cessation Counseling No 05/08/2017 [facility] Social History TypeResponse Substance Abuse Use: None. Alcohol Current Smoking Status Current every day smoker; Type: Cigarettes; Previous treatment: None; Ready to change: No; Concerns about tobacco use in household: No; Exposure to Tobacco Smoke None; Cigarette Smoking Last 365 Days Yes; Reg Smoking Cessation Counseling No; Other Tobacco Frequency 3-4 cigarrettes; entered on: 05/23/18 05/08/2017 [facility] Social History TypeResponse Substance Abuse Use: None. Alcohol Current Smoking Status Current every day smoker; Type: Cigarettes; Previous treatment: None; Ready to change: No; Concerns about tobacco use in household: No; Exposure to Tobacco Smoke None; Cigarette Smoking Last 365 Days Yes; Reg Smoking Cessation Counseling No; Other Tobacco Frequency 3-4 cigarrettes; entered on: 05/23/18 05/08/2017 [facility] Family History No Data Provided for This Section Advance Directives No Data Provided for This Section Functional Status No Data Provided for This Section
--- OUTSIDE RECORDS SUMMARY | 2019-02-27 12:43 | XMS REPORT | Summary of Care ---
Author Author [facility] Organization [facility] Neurosurgery [facility] Address Unknown Phone Unavailable Encounter HQ Naveen_mary(FIN) [id number] Date(s): 06/15/17 - 06/16/17 [facility] Neurosurgery [facility] [address], [address] [place], [place] [phone] Vital Signs No data available for this section Problem List Condition Effective Dates Status Health Status Informant GERD Active (gastroesophageal reflux disease)(Confirmed) Migraine(Confirmed) Resolved Morbid Active obesity(Confirmed) Morbid Active obesity(Confirmed) 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
--- OUTSIDE RECORDS SUMMARY | 2019-02-27 12:43 | XMS REPORT | Summary of Care ---
Author Author [facility] [place] [facility] Neurosurgery [facility] Address Unknown Phone Unavailable Encounter HQ Naveen_mary(FIN) [id number] Date(s): 05/14/17 - 05/15/17 [facility] Neurosurgery [facility] [address], [address] [place], [place] [address] [phone] Vital Signs No [...]
--- OUTSIDE RECORDS SUMMARY | 2019-02-27 12:43 | XMS REPORT | Summary of Care ---
Author Author YULI Neurosurgery [facility] Organization [employer] Neurosurgery [facility] Address Unknown Phone Unavailable Encounter LENO Carrera([place]) [id number] Date(s): 05/15/17 - 05/15/17 [employer] Neurosurgery [facility] [address], [address] [place] [phone] Discharge Disposition: Home or Self Care Attending Physician: Quinton Hare MD Referring Physician: Jaime Rust DO Vital Signs Most recent to 1 oldest [Reference Range]: Height 162.56 cm (05/15/17 8:15 AM) Temperature Oral 98.1 DegF [96.4-99.1 DegF] (05/15/17 8:15 AM) Blood Pressure 125/85 mmHg [90-140/60-90 mmHg] (05/15/17 8:15 AM) Peripheral Pulse 92 bpm Rate [60-100 bpm] (05/15/17 8:15 AM) Weight 127.273 kg (05/15/17 8:15 AM) Body Mass Index 48.16 m2 (05/15/17 8:15 AM) Problem List Condition Effective Dates Status [...]
--- OUTSIDE RECORDS SUMMARY | 2019-02-27 12:43 | XMS REPORT | Summary of Care ---
Author Author YULI Neurosurgery [facility] Organization [facility] Neurosurgery [facility] Address Unknown Phone Unavailable Encounter HQ Naveen_mary(FIN) [phone] Date(s): 05/01/17 - 05/02/17 [facility] Neurosurgery [facility] [address], [address] [place], [place] [address] [phone] Vital Signs No data available for this section Problem List Condition Effective Dates Status Health Status Informant Migraine(Confirmed) Resolved Morbid Active obesity(Confirmed) Trigeminal Resolved neuralgia(Confirmed) Allergies, Adverse Reactions, Alerts Substance Reaction Severity Status penicillins Active amoxicillin Active Medications No data available for this section Results No data available for this section Immunizations No data available for this section Procedures Procedure Date Related Diagnosis Body Site Appendectomy Cholecystectomy Tonsillectomy Social History Social History Type Response Alcohol Current, Frequency: 1-2 times per week. Smoking Status Current every day smoker; Type: Cigarettes; Previous treatment: None; Ready to change: No; Concerns about tobacco use in household: No; Exposure to Tobacco Smoke None; Cigarette Smoking Last 365 Days Yes; Reg Smoking Cessation Counseling No Assessment and Plan No data available for this section
--- OUTSIDE RECORDS SUMMARY | 2019-02-27 12:43 | XMS REPORT | Summary of Care ---
Author Author [facility] Neurosurgery [facility] Organization [facility] Neurosurgery [facility] Address Unknown Phone Unavailable Encounter HQ Naveen_mary(FIN) [id number] Date(s): 05/23/17 - 05/24/17 [facility] Neurosurgery [facility] [address], [address] [place], [place] [address] [phone] Vital [...]
--- OUTSIDE RECORDS SUMMARY | 2019-02-27 12:43 | XMS REPORT | Summary of Care ---
Author Author [facility] [place] [facility] Address Unknown Phone Unavailable Encounter HQ Froilanr_mary(FIN) [phone] Date(s): 08/10/17 - 08/11/17 [facility] [address], [address] [place], [place] [address] [phone] Vital [...]
--- OUTSIDE RECORDS SUMMARY | 2019-02-27 12:43 | XMS REPORT | Summary of Care ---
Author Author [facility] Organization [facility] Neurosurgery [facility] Address Unknown Phone Unavailable Encounter LENO Carrera([place]) [id number] Date(s): 05/16/17 - 05/16/17 [facility] Neurosurgery [facility] [address], [address] [place], [place] [address] [phone] Discharge Disposition: Home or Self Care Attending Physician: Quinton Hare MD Referring Physician: Jaime Rust DO Vital Signs Most recent to 1 oldest [Reference Range]: Height 162.56 cm (05/08/17 3:15 PM) Blood Pressure 141/91 mmHg [90-140/60-90 mmHg] *HI* (05/08/17 3:15 PM) Weight 127.273 kg (05/08/17 3:15 PM) Body Mass Index 48.16 m2 (05/08/17 3:15 PM) Problem List Condition Effective Dates Status Health [...]
--- OUTSIDE RECORDS SUMMARY | 2019-02-27 12:43 | XMS REPORT | Summary of Care ---
Author Author [facility] Organization [facility] Address Unknown Phone Unavailable Encounter LENO Carrera([place]) [id number] Date(s): 05/16/17 - 05/18/[address] [facility] [address] [employer] provided by [facility] [place] [address]- Discharge Disposition: Home or Self Care Attending Physician: Quinton Hare MD Admitting Physician: Quinton Hare MD Referring Physician: Quinton Hare MD Vital Signs 1 2 3 Most recent to oldest [Reference Range]: 162.56 cm (05/17/17 12:29 PM) Height 99.1 DegF (05/18/17 4:49 AM) 100.1 DegF *HI* (05/17/17 11:56 PM) 98.6 DegF (05/17/17 8:02 PM) Temperature Oral [96.4-99.1 DegF] 116/75 mmHg (05/18/17 4:49 AM) 115/71 mmHg (05/17/17 11:56 PM) 110/73 mmHg (05/17/17 8:02 PM) Blood Pressure [90-140/60-90 mmHg] 16 BRMIN (05/18/17 4:49 AM) 16 BRMIN (05/17/17 11:56 PM) 16 BRMIN (05/17/17 8:02 PM) Respiratory Rate [14-20 BRMIN] 103 bpm *HI* (05/18/17 4:49 AM) 111 bpm *HI* (05/17/17 11:56 PM) 105 bpm *HI* (05/17/17 8:02 PM) Peripheral Pulse Rate [60-100 bpm] 127.273 kg (05/17/17 12:29 PM) Weight 48.16 m2 (05/17/17 12:29 PM) Body Mass Index Problem List Condition Effective Dates Status Health Status Informant GERD Active (gastroesophageal reflux disease)(Confirmed) Migraine(Confirmed) Resolved Morbid Active obesity(Confirmed) Morbid Active obesity(Confirmed) Trigeminal Resolved neuralgia(Confirmed) Trigeminal Active neuralgia(Confirmed) Allergies, Adverse Reactions, Alerts Substance Reaction Severity Status penicillins Active amoxicillin Active Medications acetaminophen 650 mg, 2 tab, Route: PO, Drug form: TAB, Q4H, Dosing Weight 127.273, kg, PRN Pa in 1-3/Temp > 99.5 F, Start date: 05/16/17 7:32:00 [employer], Duration: 30 day, Stop date: 06/15/17 7:31:00 [employer] Notes: Do not exceed 4 gm/day. (Same as: Tylenol) Start Date: 05/16/17 Stop Date: 05/18/17 Status: Discontinued acetaminophen (ANES) 10 mg Route: IV, Drug form: INJ, Start date: 05/16/17 10:23:00 [employer], Stop date: 7 11:23:00 [employer] Start Date: 05/16/17 Stop Date: 05/16/17 Status: Completed acetaminophen-hydrocodone 325 mg-10 mg oral tablet 1 tab, Route: PO, Drug Form: TAB, Dosing Weight 127.273, kg, Q4H, PRN Pain Score 4-6, Start date: 05/16/17 7:32:00 [employer], Duration: 30 day, Stop date: 06/15/17 7: 31:00 [employer] Notes: Do not exceed 4gm/day of acetaminophen. (Same as: Duarte 325/10) Start Date: 05/16/17 Stop Date: 05/18/17 Status: Discontinued acetaminophen-hydrocodone 325 mg-5 mg oral tablet 1 tab, Route: PO, Drug Form: TAB, Dosing Weight 127.273, kg, Q4H, PRN Pain Score 1-3, Start date: 05/16/17 7:32:00 [employer], Duration: 30 day, Stop date: 06/15/17 7: 31:00 [employer] Notes: (Same as: Duarte 325/5) Do not exceed 4gm/day of acetaminophen. Start Date: 05/16/17 Stop Date: 05/18/17 Status: Discontinued ANES dexamethasone 4 mg, 1 mL, Route: IVP, Drug form: INJ, ONCE, Dosing Weight 127.273, kg, PRN Olay[place]a sea & Vomiting, Start date: 05/16/17 9:33:00 [employer] Notes: Concentration: 4mg/ml Start Date: 05/16/17 Stop Date: 05/16/17 Status: Completed ANES diphenhydrAMINE 12.5 mg, 0.25 mL, Route: IVP, Drug form: INJ, Q6H, Dosing Weight 127.273, kg, WA N Itching, Start date: 05/16/17 9:33:00 [employer], Duration: 30 day, Stop date: 9:32:00 [employer] Notes: (Same as: Benadryl) Start Date: 05/16/17 Stop Date: 05/16/17 Status: Discontinued ANES flumazenil 0.2 mg, 2 mL, Route: IVP, Drug form: INJ, PRN, Dosing Weight 127.273, kg, PRN Be nzodiazepine Reversal, Initial dose, Start date: 05/16/17 9:33:00 [employer], Duration: 30 day, Stop date: 06/15/17 9:32:00 [employer] Notes: (Same as: Romazicon) Start Date: 05/16/17 Stop Date: 05/16/17 Status: Discontinued ANES hydrALAZINE 10 mg, 0.5 mL, Route: IVP, Drug form: INJ, Q20Min, Dosing Weight 127.273, kg, WA N Elevated BP, Start date: 05/16/17 9:33:00 [employer], Duration: 2 doses or times, Sto p date: 05/17/17 0:00:00 [employer] Notes: (Same as: Apresoline)Push over 5 minutes Start Date: 05/16/17 Stop Date: 05/16/17 Status: Discontinued ANES HYDROmorphone 0.5 mg, 0.25 mL, Route: IVP, Drug form: INJ, Q5Min, Dosing Weight 127.273, kg, P RN Pain Score 7-10, Start date: 05/16/17 9:33:00 [employer], Duration: 4 doses or times , Stop date: 05/17/17 0:00:00 [employer] Notes: Same as Dilaudid Start Date: 05/16/17 Stop Date: 05/16/17 Status: Completed ANES labetalol 10 mg, 2 mL, Route: IVP, Drug form: INJ, Q5Min, Dosing Weight 127.273, kg, PRN E levated BP, Start date: 05/16/17 9:33:00 [employer], Duration: 5 doses or times, Stop d ate: 05/17/17 0:00:00 [employer] Start Date: 05/16/17 Stop Date: 05/16/17 Status: Discontinued ANES naloxone 0.4 mg, 1 mL, Route: IVP, Drug form: INJ, Q2MIN, Dosing Weight 127.273, kg, PRN Narcotic Reversal, Start date: 05/16/17 9:33:00 [employer], Duration: 8 doses or times, Stop date: 05/17/17 0:00:00 [employer] Notes: Same as Narcan Start Date: 05/16/17 Stop Date: 05/16/17 Status: Discontinued ANES ondansetron 4 mg, 2 mL, Route: IVP, Drug form: INJ, ONCE, Dosing Weight 127.273, kg, PRN [place] sea & Vomiting, Start date: 05/16/17 9:33:00 [employer] Notes: (Same as: Krystyna) MEDICATION WASTE Product Size: 4 mgProduct Was sabra: ___ mg Start Date: 05/16/17 Stop Date: 05/16/17 Status: Completed ANES oxyCODONE 5 mg, 1 tab, Route: PO, Drug form: TAB, Q4H, Dosing Weight 127.273, kg, PRN Pain Score 4-6, Start date: 05/16/17 9:33:00 [employer], Duration: 30 day, Stop date: 06/15 9:32:00 [employer] Notes: (Same as: Roxicodone) Start Date: 05/16/17 Stop Date: 05/16/17 Status: Discontinued ANES oxyCODONE 10 mg, 2 tab, Route: PO, Drug form: TAB, Q4H, Dosing Weight 127.273, kg, PRN Mercedes n Score 7-10, Start date: 05/16/17 9:33:00 [employer], Duration: 30 day, Stop date: 9:32:00 [employer] Notes: (Same as: Roxicodone) Start Date: 05/16/17 Stop Date: 05/16/17 Status: Discontinued ANES promethazine 6.25 mg, Route: IVPB, ONCE, Dosing Weight 127.273, kg, PRN Nausea & Vomiting, Start date: 05/16/17 12:23:00 [employer] Start Date: 05/16/17 Stop Date: 05/16/17 Status: Discontinued bisacodyl 10 mg, 1 supp, Route: WA, Drug form: SUPP, Daily, Dosing Weight 127.273, kg, PRN Constipation, Start date: 05/16/17 7:32:00 [employer], Duration: 30 day, Stop date: 7:31:00 [employer] Notes: (Same As: Dulcolax, Bisco-Lax) Start Date: 05/16/17 Stop Date: 05/18/17 Status: Discontinued Depakote 250 mg oral enteric coated tablet 750 mg=3 tab, PO, BID Start Date: 05/16/17 Status: Ordered Depakote 250 mg oral enteric coated tablet 500 mg, 2 tab, Route: PO, Drug form: ECTAB, ONCE, Priority: NOW, Start date: 17:28:00 [employer], Stop date: 05/16/17 17:28:00 [employer] Notes: (Same as: Depakote Delayed Release) Do not confuse with the extended-rel ease tablet. Delayed absorption, enteric coated tablet. Do not crush Start Date: 05/16/17 Stop Date: 05/16/17 Status: Completed dexamethasone (ANES) Route: IV, Drug form: INJ, ONCE, Stop date: 05/16/17 9:23:00 [employer] Start Date: 05/16/17 Stop Date: 05/16/17 Status: Completed dexmedetomidine (ANES) 200 microgram Route: IV, Drug form: INJ, Start date: 05/16/17 7:45:00 [employer], Stop date: 05/16/17 8:45:00 [employer] Start Date: 05/16/17 Stop Date: 05/16/17 Status: Completed Dilaudid 0.5 mg, 0.25 mL, Route: IVP, Drug form: INJ, Q4H, Dosing Weight 127.273, kg, PRN Pain Score 7-10, Start date: 05/16/17 7:32:00 [employer], Stop date: 06/15/17 7:31:00 [employer] Notes: Same as Dilaudid Start Date: 05/16/17 Stop Date: 05/18/17 Status: Discontinued divalproex sodium 250 mg oral enteric coated tablet (Depakote) 750 mg, 3 tab, Route: PO, Drug form: ECTAB, BID, Dosing Weight 127.273, kg, Star t date: 05/16/17 9:00:00 [employer], Stop date: 06/14/17 20:00:00 [employer] Notes: (Same as: Depakote Delayed Release) Do not confuse with the extended-rel ease tablet. Delayed absorption, enteric coated tablet. Start Date: 05/16/17 Stop Date: 05/18/17 Status: Discontinued docusate 100 mg, 1 cap, Route: PO, Drug form: CAP, Q12H, Dosing Weight 127.273, kg, Start date: 05/16/17 9:00:00 [employer], Duration: 30 day, Stop date: 06/14/17 21:00:00 [employer] Notes: (Same as: Colace) (Do Not Crush) Start Date: 05/16/17 Stop Date: 05/18/17 Status: Discontinued docusate sodium 100 mg oral capsule 100 mg, PO, Q12H, PRN as needed for constipation, # 60 tab, 0 Refill(s) Start Date: 05/17/17 Status: Ordered ePHEDrine (ANES) Route: IV, Drug form: INJ, ONCE, Stop date: 05/16/17 9:08:00 [employer] Start Date: 05/16/17 Stop Date: 05/16/17 Status: Completed famotidine (ANES) Route: IV, Drug form: INJ, ONCE, Stop date: 05/16/17 11:23:00 [employer] Start Date: 05/16/17 Stop Date: 05/16/17 Status: Completed fentaNYL (ANES) Route: IV, Drug form: INJ, ONCE, Stop date: 05/16/17 9:13:00 [employer] Start Date: 05/16/17 Stop Date: 05/16/17 Status: Completed Flexeril 10 mg, 1 tab, Route: PO, Drug form: TAB, TID, Dosing Weight 127.273, kg, PRN Spa sm, Start date: 05/17/17 10:38:00 [employer], Duration: 30 day, Stop date: 06/16/17 10: 37:00 [employer] Notes: (Same As: Flexeril) Start Date: 05/17/17 Stop Date: 05/18/17 Status: Discontinued Flexeril 10 mg oral tablet 10 mg, PO, TID, PRN as needed for muscle spasm, # 30 tab, 0 Refill(s) Start Date: 05/17/17 Stop Date: 05/20/17 Status: Completed glycopyrrolate (ANES) Route: IV, Drug form: INJ, ONCE, Stop date: 05/16/17 12:31:00 [employer] Start Date: 05/16/17 Stop Date: 05/16/17 Status: Completed heparin 5000 units/mL injectable solution 5,000 unit, 1 mL, Route: SUB-Q, Drug form: INJ, Q8H, Dosing Weight 127.273, kg, Start date: 05/17/17 8:00:00 [employer], Duration: 30 day, Stop date: 06/16/17 0:00:00 [employer] Notes: porcine heparin Start Date: 05/17/17 Stop Date: 05/18/17 Status: Discontinued Lactated Ringers Injection IV (ANES) 1000 mL Route: IV, Total Volume: 1,000, Start date: 05/16/17 7:26:00 [employer], Stop date: 8:26:00 [employer] Start Date: 05/16/17 Stop Date: 05/16/17 Status: Completed Lexapro 20 mg, 2 tab, Route: PO, Drug form: TAB, Daily, Dosing Weight 127.273, kg, Start date: 05/16/17 9:00:00 [employer], Duration: 30 day, Stop date: 06/14/17 9:00:00 [employer] Notes: (Same as: Lexapro) Start Date: 05/16/17 Stop Date: 05/18/17 Status: Discontinued lidocaine (ANES) Route: IV, Drug form: INJ, ONCE, Stop date: 05/16/17 9:18:00 [employer] Start Date: 05/16/17 Stop Date: 05/16/17 Status: Completed Lipitor 20 mg, 1 tab, Route: PO, Drug form: TAB, Bedtime, Dosing Weight 127.273, kg, Sta rt date: 05/16/17 21:00:00 [employer], Duration: 30 day, Stop date: 06/14/17 21:00:[address] Notes: (Same As: Lipitor) Start Date: 05/16/17 Stop Date: 05/18/17 Status: Discontinued midazolam (ANES) Route: IV, Drug form: SOLN, ONCE, Stop date: 05/16/17 9:18:00 [employer] Start Date: 05/16/17 Stop Date: 05/16/17 Status: Completed neostigmine (ANES) Route: IV, Drug form: INJ, ONCE, Stop date: 05/16/17 12:31:00 [employer] Start Date: 05/16/17 Stop Date: 05/16/17 Status: Completed Duarte 10/325 oral tablet 1 tab, PO, Q4H, PRN for pain, X 10 day, # 60 tab, 0 Refill(s) Start Date: 05/17/17 Stop Date: 05/27/17 Status: Ordered ondansetron 4 mg, 2 mL, Route: IVP, Drug form: INJ, Q8H, Dosing Weight 127.273, kg, PRN Naus ea & Vomiting, Start date: 05/16/17 7:32:00 [employer], Duration: 30 day, Stop date: 06/15/17 7:31:00 [employer] Notes: (Same as: Zofran) MEDICATION WASTE Product Size: 4 mgProduct Was sabra: ___ mg Start Date: 05/16/17 Stop Date: 05/18/17 Status: Discontinued ondansetron (ANES) Route: IV, Drug form: INJ, ONCE, Stop date: 05/16/17 11:48:00 [employer] Start Date: 05/16/17 Stop Date: 05/16/17 Status: Completed Phenergan 12.5 mg oral tablet 12.5 mg=1 tab, PO, Q4H, PRN Nausea & Vomiting, # 60 tab, 0 Refill(s) Start Date: 05/17/17 Stop Date: 05/27/17 Status: Ordered phenylephrine (ANES) Route: IV, Drug form: INJ, ONCE, Stop date: 05/16/17 9:08:00 [employer] Start Date: 05/16/17 Stop Date: 05/16/17 Status: Completed Prilosec 20 mg, Route: PO, Drug form: DRC, Daily, Dosing Weight 127.273, kg, Start date: 05/16/17 9:00:00 [employer], Duration: 30 day, Stop date: 06/14/17 9:00:00 [employer] Start Date: 05/16/17 Stop Date: 05/16/17 Status: Discontinued promethazine 12.5 mg, 0.5 mL, Route: IVPB, Drug form: INJ, Q6H, Dosing Weight 127.273, kg, WA N Nausea & Vomiting, Start date: 05/16/17 7:32:00 [employer], Duration: 30 day, Stop date: 06/15/17 7:31:00 [employer] Notes: Do not give IV push. (Same as: Phenergan) Start Date: 05/16/17 Stop Date: 05/18/17 Status: Discontinued propofol (ANES) Route: IV, Drug form: INJ, ONCE, Stop date: 05/16/17 9:13:00 [employer] Start Date: 05/16/17 Stop Date: 05/16/17 Status: Completed propofol (ANES) 10 mg Route: IV, Drug form: INJ, Start date: 05/16/17 8:38:00 [employer], Stop date: 05/16/17 9:38:00 [employer] Start Date: 05/16/17 Stop Date: 05/16/17 Status: Completed Protonix 40 mg, 1 tab, Route: PO, Drug form: ECTAB, Daily, Start date: 05/16/17 9:00:[address], Duration: 30 day, Stop date: 06/14/17 9:00:00 [employer] Notes: Tablet should not be chewed or crushed.(Same as: Protonix) Start Date: 05/16/17 Stop Date: 05/18/17 Status: Discontinued remifentanil (ANES) Route: IV, Drug form: INJ, ONCE, Stop date: 05/16/17 9:18:00 [employer] Start Date: 05/16/17 Stop Date: 05/16/17 Status: Completed remifentanil (ANES) 2 mg Route: IV, Drug form: INJ, Start date: 05/16/17 7:55:00 [employer], Stop date: 05/16/17 8:55:00 [employer] Start Date: 05/16/17 Stop Date: 05/16/17 Status: Completed rocuronium (ANES) Route: IV, Drug form: INJ, ONCE, Stop date: 05/16/17 9:13:00 [employer] Start Date: 05/16/17 Stop Date: 05/16/17 Status: Completed Saline Flush 0.9% 10 ml, Route: IVP, Drug Form: INJ, Dosing Weight 127.273, kg, PRN, PRN Line Flus h, Start date: 05/16/17 7:32:00 [employer], Duration: 30 day, Stop date: 06/15/17 7:31: 00 [employer] Notes: (Same as: BD Posiflush) Start Date: 05/16/17 Stop Date: 05/18/17 Status: Discontinued Saline Flush 0.9% 10 ml, Route: IVP, Drug Form: INJ, Dosing Weight 127.273, kg, Q12H, Start date: 05/16/17 9:00:00 [employer], Duration: 30 day, Stop date: 06/14/17 21:00:00 [employer] Notes: (Same as: BD Posiflush) Start Date: 05/16/17 Stop Date: 05/18/17 Status: Discontinued senna 8.6 mg, 1 tab, Route: PO, Drug Form: TAB, Dosing Weight 127.273, kg, Q12H, Start date: 05/16/17 9:00:00 [employer], Duration: 30 day, Stop date: 06/14/17 21:00:00 [employer] Notes: (Same as: Senokot) Start Date: 05/16/17 Stop Date: 05/18/17 Status: Discontinued Sodium Chloride 0.9% IV (ANES) 1000 mL Route: IV, Total Volume: 1,000, Start date: 05/16/17 8:00:00 [employer], Stop date: 9:00:00 [employer] Start Date: 05/16/17 Stop Date: 05/16/17 Status: Completed Sodium Chloride 0.9% IV (ANES) 235 mL + vancomycin (ANES) 1500 mg Route: IV, Drug form: INJ, Start date: 05/16/17 7:45:00 [employer], Stop date: 05/16/17 8:45:00 [employer] Start Date: 05/16/17 Stop Date: 05/16/17 Status: Completed Sodium Chloride 0.9% IV 1,000 mL 1,000 mL, Rate: 75 ml/hr, Infuse over: 13.3 hr, Route: IV, Dosing Weight 127.273 kg, Total Volume: 1,000, Start date: 05/16/17 7:32:00 [employer], Stop date: 06/15/17 7:31:00 [employer], 2.44, m2 Start Date: 05/16/17 Stop Date: 05/18/17 Status: Discontinued tramadol 50 mg oral tablet 50 mg, 1 tab, Route: PO, Drug form: TAB, Q4H, Dosing Weight 127.273, kg, PRN Mercedes n Score 1-3, Start date: 05/16/17 7:32:00 [employer], Duration: 30 day, Stop date: 05/19 03/04 7:31:00 [employer] Notes: (Same As: Ultram) Start Date: 05/16/17 Stop Date: 05/18/17 Status: Discontinued tramadol 50 mg oral tablet 50 mg=1 tab, PO, Q4H, PRN Pain, X 10 day, # 60 tab, 0 Refill(s) Start Date: 05/17/17 Stop Date: 05/27/17 Status: Ordered vancomycin 2 gm, 500 mL, Route: IVPB, Drug form: SOLN, PRE OP, Start date: 05/16/17 0:00:00 [employer], Duration: 1 day, Stop date: 05/16/17 23:59:00 [employer], ABX Indication: Surgical Prophylaxis Notes: TIME CRITICAL MEDICATIONSame as: Vancocin Infusion rate< 1000 mg: infuse over 1 [id number] - 1500 mg: infuse over 1.5 [id number] - 2000 mg: infuse over 2 hours> 2001 mg: infuse over 2.5 hours Start Date: 05/16/17 Stop Date: 05/18/17 Status: Discontinued vancomycin (SCIP) 1,000 mg, Route: IVPB, Drug form: INJ, [id number], Dosing Weight 127.273, kg, TIME CRITICAL MEDICATION, Start date: 05/16/17 20:00:00 [employer], Duration: 2 doses or den es, Stop date: 05/17/17 8:00:00 [employer], ABX Indication: Surgical Prophylaxis Notes: TIME CRITICAL MEDICATION(Same As: Vancocin)Infusion rate< 1000 mg: infuse over 1 [id number] - 1500 mg: infuse over 1.5 [id number] - 2000 mg: infuse over 2 hours> 2001 mg: infuse over 2.5 hours MEDICATION WASTE Product Size: 1000 mgProduct Wasted: ___ mg Start Date: 05/16/17 Stop Date: 05/17/17 Status: Completed vancomycin (SCIP) 1,000 mg, Route: IVPB, Drug form: INJ, [id number], Dosing Weight 127.273, kg, TIME CRITICAL MEDICATION, Start date: 05/16/17 9:00:00 [employer], Duration: 2 doses or time s, Stop date: 05/16/17 21:00:00 [employer]ER, ABX Indication: Surgical Prophylaxis Notes: TIME CRITICAL MEDICATION(Same As: Vancocin)Infusion rate< 1000 mg: infuse over 1 [id number] - 1500 mg: infuse over 1.5 [id number] - 2000 mg: infuse over 2 hours> 2001 mg: infuse over 2.5 hours MEDICATION WASTE Product Size: 1000 mgProduct Wasted: ___ mg Start Date: 05/16/17 Stop Date: 05/16/17 Status: Discontinued Zofran 4 mg oral tablet 4 mg=1 tab, PO, Q8H, PRN Nausea/vomiting, # 30 tab, 0 Refill(s) Start Date: 05/17/17 Stop Date: 05/27/17 Status: Ordered Results BLOOD BANK RESULTS Most recent to 1 oldest [Reference Range]: ABO/Rh O POS *Unknown* (05/16/17 5:56 AM) Antibody Scrn Negative (05/16/17 5:56 AM) ELECTROLYTES Most recent to 1 oldest [Reference Range]: Sodium Lvl [135-145 138 mEq/L mEq/L] (05/16/17 12:57 PM) Potassium Lvl 5.1 mEq/L [3.5-5.1 mEq/L] (05/16/17 12:57 PM) Chloride Lvl [95-109 105 mEq/L mEq/L] (05/16/17 12:57 PM) CO2 [24-32 mEq/L] 19 mEq/L *LOW* (05/16/17 12:57 PM) AGAP [10.0-20.0 19.1 mEq/L mEq/L] (05/16/17 12:57 PM) CHEM PANEL Most recent to 1 oldest [Reference Range]: Creatinine Lvl 0.73 mg/dL [0.50-1.40 mg/dL] (05/16/17 12:57 PM) eGFR 107 mL/min/1.73m2 1 *NA* (05/16/17 12:57 PM) BUN [7-22 mg/dL] 17 mg/dL (05/16/17 12:57 PM) Glucose Lvl [70-99 168 mg/dL mg/dL] *HI* (05/16/17 12:57 PM) Calcium Lvl 7.4 mg/dL [8.5-10.5 mg/dL] *LOW* (05/16/17 12:57 PM) 1Result Comment: The eGFR is calculated using the [...] from the National Kidney Disease Education Program ( NKDEP) which additionally recommends that when the eGFR is used in patients with extremes of body mass index for purposes of drug dosing, the eGFR should be mul tiplied by the estimated BMI. HEMATOLOGY Most recent to 1 oldest [Reference Range]: WBC [3.7-10.4 K/CMM] 11.7 K/CMM *HI* (05/16/17 12:57 PM) RBC [4.20-5.40 3.88 M/CMM M/CMM] *LOW* (05/16/17 12:57 PM) Hgb [12.0-16.0 g/dL] 10.7 g/dL *LOW* (05/16/17 12:57 PM) Hct [36.0-48.0 %] 33.3 % *LOW* (05/16/17 12:57 PM) MCV [80.0-98.0 fL] 85.8 fL (05/16/17 12:57 PM) MCH [27.0-31.0 pg] 27.6 pg (05/16/17 12:57 PM) MCHC [32.0-36.0 32.2 g/dL g/dL] (05/16/17 12:57 PM) RDW [11.5-14.5 %] 15.6 % *HI* (05/16/17 12:57 PM) Platelet [133-450 191 K/CMM K/CMM] (05/16/17 12:57 PM) MPV [7.4-10.4 fL] 7.4 fL (05/16/17 12:57 PM) Segs [45.0-75.0 %] 87.5 % *HI* (05/16/17 12:57 PM) Lymphocytes 9.6 % [20.0-40.0 %] *LOW* (05/16/17 12:57 PM) Monocytes [2.0-12.0 2.5 % %] (05/16/17 12:57 PM) Eosinophils [0.0-4.0 0.2 % %] (05/16/17 12:57 PM) Basophils [0.0-1.0 0.2 % %] (05/16/17 12:57 PM) Segs-Bands # 10.2 K/CMM [1.5-8.1 K/CMM] *HI* (05/16/17 12:57 PM) Lymphocytes # 1.1 K/CMM [1.0-5.5 K/CMM] (05/16/17 12:57 PM) Monocytes # [0.0-0.8 0.3 K/CMM K/CMM] (05/16/17 12:57 PM) Immunizations No data available for this section [...]
--- OUTSIDE RECORDS SUMMARY | 2019-02-27 12:44 | XMS REPORT | Summary of Care ---
Author Author Juan Oliveiraan Organization Unknown Address Unknown Phone Unavailable Care Team Providers Care Bladder Blower Name Role Phone RUSTAM CARDONA M.D. Unavailable Unavailable DULCE SNDYER MD NYRUSTAM Unavailable Unavailable Unavailable Unavailable Functional Status Name Dates Details Functional status health issues are not documented Status: Name Dates Details Cognitive status health issues are not documented Status: Problems Name Dates Details Left ACL tear (844.2, S83.512A) Status: Active BMI 45.0-49.9, adult (V85.42, Z68.42) Status: Active S/P ACL reconstruction (V45.89, Z98.890) Status: Active Medications Name Dates Details Depakote 500 MG Oral Tablet Delayed Release Active Lipitor TABS * Refills: 0 Active Lexapro 10 MG Oral Tablet * Refills: 0 Active PriLOSEC OTC TBEC * Refills: 0 Active Amitriptyline HCl TABS * Refills: 0 Active Promethazine HCl - 25 MG Oral Tablet ONE TAB EVERY 6 HOURS PRN NAUSEA * Quantity: 30 Refills: 0 RUSTAM CARDONA M.D. * Start : 23-May-2018 Active Enoxaparin Sodium 40 MG/0.4ML Subcutaneous Solution ONE INJECTION SUBQ FOR TEN DAYS * Quantity: 10 Refills: 0 RUSTAM CARDONA M.D. * Start : 27-May-2018 Active 0.4 ML Syringe Allergies and Adverse Reactions Name Dates Details amoxicillin (Allergy) Status: Active Penicillins (Allergy) Status: Active Past Medical History Name Dates Details History of gallbladder disease (V12.79, Z87.19) Status: Resolved Procedures Procedure Dates Details Post Op [facility] 29 Survey Date: 31-May-2018 Immunization Name Dates Details Immunizations not documented Social History Name Dates Details Unknown if ever smoked Vital Signs Date Test Result Details No Known Vitals to report Results Date Description Value Details [id number] [U] XRAY KNEE 1 OR 2 VWS LEFT [id number] XR KNEE 1 OR 2 VWS LEFT Images acquired, not reported on this accession number. Plan of Care Name Dates Details Planned Observations Planned Goals not documented Interventions Provided Labs/Procedures/Imaging* [U] XRAY KNEE 1 OR 2 VWS LEFT [id number]; Done: 25 Jul 2018 Supplies* Post Op Knee Brace; To Be Done: 25 Jul 2018 Instructions Name Dates Details Instructions not documented Encounters Appointment; RUSTAM CARDONA M.D. Encounter Diagnosis: Problem not documented On: 14-May-2018 10:30 Appointment; RUSTAM CARDONA M.D. Encounter Diagnosis: Problem not documented On: 24-May-2018 9:00 Appointment; RUSTAM CARDONA M.D. Encounter Diagnosis: Problem not documented On: 27-May-2018 9:30 Appointment; RUSTAM CARDONA M.D. Encounter Diagnosis: Problem not documented On: 24-Jun-2018 11:00 Appointment; RUSTAM CARDONA M.D. Encounter Diagnosis: Problem not documented On: 25-Jul-2018 16:00
--- OUTSIDE RECORDS SUMMARY | 2019-02-27 12:44 | XMS REPORT | Summary of Care ---
Author Author [facility] Address Unknown Phone Unavailable Care Team Providers Care Specialty Development Consultant Name Role Phone Jaime Rust PCP Encounter HQ Naveen_mary(FIN) [phone] Date(s): 05/28/18 - 06/26/18 [facility] Encounter Diagnosis Muscle weakness (generalized) (Final) - Difficulty in walking, not elsewhere classified (Final) - Sprain of anterior cruciate ligament of left knee, subsequent encounter (Final) - 07/02/18 Pain in left knee (Final) - Stiffness of left knee, not elsewhere classified (Final) - Discharge Disposition: Home or Self Care Attending Physician: Nacho Oliva MD Vital Signs No data available for this section Problem List Condition Effective Dates Status Health Status Informant GERD Active (gastroesophageal reflux disease)(Confirmed) Migraine(Confirmed) Resolved Morbid Active obesity(Confirmed) Trigeminal Resolved neuralgia(Confirmed) Trigeminal [...] Tobacco Frequency 3-4 cigarrettes; entered on: 05/23/18 Assessment and Plan No data available for this section
--- OUTSIDE RECORDS SUMMARY | 2019-02-27 12:44 | XMS REPORT | Summary of Care ---
Author Author [facility] Organization [facility] Address Unknown Phone Unavailable Care Team Providers Care Retail Sales Merchandiser Development Name Role Phone UNKNOWN, DOCTOR PCP Unavailable Encounter HQ Deandre(FIN) [id number] Date(s): 05/24/18 - 05/24/18 [facility] [address] [place] [address]- [phone] Encounter Diagnosis Sprain of anterior cruciate ligament of left knee, initial encounter (Final) - 05/30/18 Nicotine dependence, cigarettes, uncomplicated (Final) - Other terminal make up operator (current) drug therapy (Final) - Discharge Disposition: Home or Self Care Attending Physician: Nacho Oliva MD Referring Physician: Nacho Oliva MD Vital Signs 1 2 3 Most recent to oldest [Reference Range]: 162.56 cm (05/23/18 2:05 PM) Height 98.2 DegF (05/23/18 2:09 PM) Temperature Oral [96.4-99.1 DegF] 106/68 mmHg (05/24/18 2:00 PM) 103/54 mmHg (05/24/18 1:45 PM) 121/53 mmHg (05/24/18 1:30 PM) Blood Pressure [90-140/60-90 mmHg] 13 BRMIN *LOW* (05/24/18 2:00 PM) 12 BRMIN *LOW* (05/24/18 1:45 PM) 28 BRMIN *HI* (05/24/18 1:30 PM) Respiratory Rate [14-20 BRMIN] 105 bpm *HI* (05/23/18 2:09 PM) Peripheral Pulse Rate [60-100 bpm] 128.864 kg (05/24/18 8:00 AM) Weight 48.76 m2 (05/24/18 8:00 AM) Body Mass Index Problem List Condition Effective Dates Status Health Status Informant GERD Active (gastroesophageal reflux disease)(Confirmed) Migraine(Confirmed) Resolved Morbid Active obesity(Confirmed) Trigeminal Resolved neuralgia(Confirmed) Trigeminal Active neuralgia(Confirmed) Allergies, Adverse Reactions, Alerts Substance Reaction Severity Status penicillins Active amoxicillin Active Medications acetaminophen (ANES) Route: IV, Drug form: INJ, ONCE, Stop date: 05/24/18 11:20:00 BUS ESCORT Start Date: 05/24/18 Stop Date: 05/24/18 Status: Completed amitriptyline 25 mg oral tablet 25 mg=1 tab, PO, Bedtime, 0 Refill(s) Start Date: 05/23/18 Status: Ordered ANES albuterol 0.083% inhalation solution 2.49 mg, Route: NEB, Q20Min, Dosing Weight 128.864, kg, PRN Wheezing, Priority: STAT, Start date: 05/24/18 12:52:00 BUS ESCORT, Duration: 30 day, Stop date: 06/23/18 1 2:51:00 BUS ESCORT Start Date: 05/24/18 Stop Date: 05/24/18 Status: Discontinued ANES diphenhydrAMINE 12.5 mg, Route: IVP, Drug form: INJ, Q6H, Dosing Weight 128.864, kg, PRN Itching , Start date: 05/24/18 12:52:00 BUS ESCORT, Duration: 30 day, Stop date: 06/23/18 12:51 :00 BUS ESCORT Start Date: 05/24/18 Stop Date: 05/24/18 Status: Discontinued ANES fentaNYL 25 microgram, Route: IVP, Q5Min, Dosing Weight 128.864, kg, PRN Pain Score 4-6, Priority: Routine, Start date: 05/24/18 12:52:00 BUS ESCORT, Duration: 4 doses or times , Stop date: Limited # of times Start Date: 05/24/18 Stop Date: 05/24/18 Status: Discontinued ANES flumazenil 0.2 mg, Route: IVP, PRN, Dosing Weight 128.864, kg, PRN Benzodiazepine Reversal, Initial dose, Start date: 05/24/18 12:52:00 BUS ESCORT, Duration: 30 day, Stop date: 0 06/23/18 12:51:00 BUS ESCORT Start Date: 05/24/18 Stop Date: 05/24/18 Status: Discontinued ANES hydrALAZINE 10 mg, Route: IVP, Q20Min, Dosing Weight 128.864, kg, PRN Elevated BP, Start mina e: 05/24/18 12:52:00 BUS ESCORT, Duration: 2 doses or times, Stop date: Limited # of ti mes Start Date: 05/24/18 Stop Date: 05/24/18 Status: Discontinued ANES HYDROmorphone 0.5 mg, Route: IVP, Q5Min, Dosing Weight 128.864, kg, PRN Pain Score 7-10, Start date: 05/24/18 12:52:00 BUS ESCORT, Duration: 4 doses or times, Stop date: Limited # of times Start Date: 05/24/18 Stop Date: 05/24/18 Status: Discontinued ANES labetalol 10 mg, Route: IVP, Q5Min, Dosing Weight 128.864, kg, PRN Elevated BP, Start date : 05/24/18 12:52:00 BUS ESCORT, Duration: 5 doses or times, Stop date: Limited # of den es Start Date: 05/24/18 Stop Date: 05/24/18 Status: Discontinued ANES meperidine 12.5 mg, Route: IVP, Q30Min, Dosing Weight 128.864, kg, PRN Other -See Comment, For shivering, Start date: 05/24/18 12:52:00 BUS ESCORT, Duration: 2 doses or times, St op date: Limited # of times Start Date: 05/24/18 Stop Date: 05/24/18 Status: Discontinued ANES naloxone 0.1 mg, Route: SUB-Q, Q6H, Dosing Weight 128.864, kg, PRN Itching, Start date: 1 07/25/17 12:52:00 BUS ESCORT, Duration: 30 day, Stop date: 06/23/18 12:51:00 BUS ESCORT Start Date: 05/24/18 Stop Date: 05/24/18 Status: Discontinued ANES naloxone 0.4 mg, Route: IVP, Q2MIN, Dosing Weight 128.864, kg, PRN Narcotic Reversal, Sta rt date: 05/24/18 12:52:00 BUS ESCORT, Duration: 8 doses or times, Stop date: Limited # of times Start Date: 05/24/18 Stop Date: 05/24/18 Status: Discontinued ANES ondansetron 4 mg, Route: IVP, ONCE, Dosing Weight 128.864, kg, PRN Nausea & Vomiting, Start date: 05/24/18 12:52:00 BUS ESCORT Start Date: 05/24/18 Stop Date: 05/24/18 Status: Completed ANES oxyCODONE 10 mg, Route: PO, Drug form: TAB, Q4H, Dosing Weight 128.864, kg, PRN Pain Score 7-10, Start date: 05/24/18 12:52:00 BUS ESCORT, Duration: 30 day, Stop date: 06/23/18 12:51:00 BUS ESCORT Start Date: 05/24/18 Stop Date: 05/24/18 Status: Discontinued ANES oxyCODONE 5 mg, Route: PO, Drug form: TAB, Q4H, Dosing Weight 128.864, kg, PRN Pain Score 4-6, Start date: 05/24/18 12:52:00 BUS ESCORT, Duration: 30 day, Stop date: 06/23/18 12 :51:00 BUS ESCORT Start Date: 05/24/18 Stop Date: 05/24/18 Status: Discontinued ANES oxyCODONE 2.5 mg, Route: PO, Drug form: LIQ, Q4H, Dosing Weight 128.864, kg, PRN Pain Scor e 4-6, Start date: 05/24/18 12:52:00 BUS ESCORT, Duration: 30 day, Stop date: 06/23/18 12:51:00 BUS ESCORT Start Date: 05/24/18 Stop Date: 05/24/18 Status: Discontinued ANES promethazine 6.25 mg, Route: IVPB, ONCE, Dosing Weight 128.864, kg, PRN Nausea & Vomiting, Start date: 05/24/18 12:52:00 BUS ESCORT Start Date: 05/24/18 Stop Date: 05/24/18 Status: Discontinued ANES scopolamine 1.5 mg transdermal film 1 patch, Route: TOP, Drug Form: ERFILM, Dosing Weight 128.864, kg, ONCE, Apply b ehind ear. Avoid use in elderly., Start date: 05/24/18 12:52:00 BUS ESCORT, Stop date: 05/24/18 12:52:00 BUS ESCORT Start Date: 05/24/18 Stop Date: 05/24/18 Status: Discontinued ceFAZolin + Sodium Chloride 0.9% IV 100 mL 2 gm, Route: IVPB, ONCALL, Start date: 05/24/18 6:00:00 BUS ESCORT, Duration: 1 doses o r times, ABX Indication: Surgical Prophylaxis Notes: (Same As: Jessica Ochoa) MEDICATION WASTE Product Size: 1000 mgP roduct Wasted: ___ mg Start Date: 05/24/18 Stop Date: 05/24/18 Status: Discontinued Cleocin Phosphate (ANES) Route: IV, Drug form: INJ, ONCE, Stop date: 05/24/18 11:20:00 BUS ESCORT Start Date: 05/24/18 Stop Date: 05/24/18 Status: Completed dexamethasone (ANES) Route: IV, Drug form: INJ, ONCE, Stop date: 05/24/18 11:20:00 BUS ESCORT Start Date: 05/24/18 Stop Date: 05/24/18 Status: Completed diazepam 10 mg oral tablet 10 mg=1 tab, PO, TID, 0 Refill(s) Start Date: 05/23/18 Status: Ordered divalproex sodium 500 mg oral enteric coated tablet (Depakote) 500 mg=1 tab, PO, TID, 0 Refill(s) Start Date: 05/23/18 Status: Ordered fentaNYL (ANES) Route: IV, Drug form: INJ, ONCE, Stop date: 05/24/18 11:19:00 BUS ESCORT Start Date: 05/24/18 Stop Date: 05/24/18 Status: Completed glycopyrrolate (ANES) Route: IV, Drug form: INJ, ONCE, Stop date: 05/24/18 12:49:00 BUS ESCORT Start Date: 05/24/18 Stop Date: 05/24/18 Status: Completed ketOROLAC (ANES) IV, ONCE Start Date: 05/24/18 Stop Date: 05/24/18 Status: Completed Lactated Ringers Injection IV (ANES) 1000 mL Route: IV, Total Volume: 1,000, Start date: 05/24/18 10:32:00 BUS ESCORT, Stop date: 11:32:00 BUS ESCORT Start Date: 05/24/18 Stop Date: 05/24/18 Status: Completed Lactated Ringers Injection IV 1,000 mL 1,000 mL, Rate: 25 ml/hr, Infuse over: 40 hr, Route: IV, Dosing Weight 129.091 k g, Total Volume: 1,000, Start date: 05/24/18 8:49:00 BUS ESCORT, Duration: 30 day, Stop date: 06/23/18 8:48:00 BUS ESCORT, 2.46, m2 Start Date: 05/24/18 Stop Date: 05/24/18 Status: Discontinued lidocaine (ANES) Route: IV, Drug form: INJ, ONCE, Stop date: 05/24/18 11:19:00 BUS ESCORT Start Date: 05/24/18 Stop Date: 05/24/18 Status: Completed midazolam (ANES) Route: IV, Drug form: SOLN, ONCE, Stop date: 05/24/18 11:19:00 BUS ESCORT Start Date: 05/24/18 Stop Date: 05/24/18 Status: Completed morphine Sulfate 2 mg, 1 mL, Route: IVP, Drug form: SOLN, Q3H, Dosing Weight 128.864, kg, PRN Mercedes n Score 1-3, Start date: 05/24/18 12:27:00 BUS ESCORT, Duration: 30 day, Stop date: 12/04 12:26:00 BUS ESCORT Start Date: 05/24/18 Stop Date: 05/24/18 Status: Discontinued neostigmine (ANES) Route: IV, Drug form: INJ, ONCE, Stop date: 05/24/18 12:49:00 BUS ESCORT Start Date: 05/24/18 Stop Date: 05/24/18 Status: Completed ondansetron (ANES) Route: IV, Drug form: INJ, ONCE, Stop date: 05/24/18 11:14:00 BUS ESCORT Start Date: 05/24/18 Stop Date: 05/24/18 Status: Completed Percocet 5/325 oral tablet 2 tab, Route: PO, Drug Form: TAB, Dosing Weight 128.864, kg, Q4H, PRN Pain, Star t date: 05/24/18 12:27:00 BUS ESCORT, Duration: 30 day, Stop date: 06/23/18 12:26:00 CS T Start Date: 05/24/18 Stop Date: 05/24/18 Status: Deleted propofol (ANES) Route: IV, Drug form: INJ, ONCE, Stop date: 05/24/18 11:19:00 BUS ESCORT Start Date: 05/24/18 Stop Date: 05/24/18 Status: Completed rocuronium (ANES) Route: IV, Drug form: INJ, ONCE, Stop date: 05/24/18 11:24:00 BUS ESCORT Start Date: 05/24/18 Stop Date: 05/24/18 Status: Completed Roxicodone 5 mg, 1 tab, Route: PO, Drug form: TAB, Q4H, PRN Pain Score 4-6, Start date: 01/02 13:06:00 BUS ESCORT, Duration: 30 day, Stop date: 06/23/18 13:05:00 BUS ESCORT Notes: (Same as: Roxicodone) Start Date: 05/24/18 Stop Date: 05/24/18 Status: Discontinued scopolamine 1.5 mg transdermal film 1 patch, Route: TOP, Dosing Weight 129.091, kg, ONCE, Start date: 05/24/18 9:10: 00 BUS ESCORT, Stop date: 05/24/18 9:10:00 BUS ESCORT Start Date: 05/24/18 Stop Date: 05/24/18 Status: Completed succinylcholine (ANES) Route: IV, Drug form: INJ, ONCE, Stop date: 05/24/18 11:20:00 BUS ESCORT Start Date: 05/24/18 Stop Date: 05/24/18 Status: Completed Tylenol 325 mg, 1 tab, Route: PO, Drug form: TAB, Q4H, PRN Pain Score 4-6, Start date: 07/25/17 13:06:00 BUS ESCORT, Duration: 30 day, Stop date: 06/23/18 13:05:00 BUS ESCORT Notes: Do not exceed 4 gm/day. (Same as: Tylenol) Start Date: 05/24/18 Stop Date: 05/24/18 Status: Discontinued Zofran 4 mg, 2 mL, Route: IV, Drug form: INJ, Q8H, Dosing Weight 128.864, kg, PRN Nause a, Start date: 05/24/18 12:27:00 BUS ESCORT, Duration: 30 day, Stop date: 06/23/18 12:2 6:00 BUS ESCORT Notes: (Same as: Zofran) MEDICATION WASTE Product Size: 4 mgProduct Was sabra: ___ mg Start Date: 05/24/18 Stop Date: 05/24/18 Status: Discontinued Results Most recent to 1 oldest [Reference Range]: U Preg [Negative] Negative (05/23/18 3:24 PM) Immunizations No data available for this [...]
--- OUTSIDE RECORDS SUMMARY | 2019-02-27 12:44 | XMS REPORT ---
Author Author [facility] Address Unknown Phone Unavailable Care Team Providers Care Playroom Attendant Name Role Phone Unavailable Unavailable Payers Payer Name Policy Type Policy Number Effective Date Expiration Date Problems This patient has no known problems. Allergies, Adverse Reactions, Alerts Allergy Name Allergy Type Status Severity Reaction(s) Onset Date Inactive Date Treating Clinician Comments Penicillins DA Active U 2006-10-29 00:00:00 amoxicillin DA Active U 2006-10-29 00:00:00 .AMOXICILL DA Active U 2006-10-29 00:00:00 LACTOSE DA Active U 2006-10-29 00:00:00 No Known Contrast Allergies DA Active U 2006-10-29 00:00:00 No Known Other Allergies DA Active U 2006-10-29 00:00:00 PENICILLIN DA Active U 2006-10-29 00:00:00 Medications This patient has no known medications.
[2019-02-27] MEDS ORDERED: ASPIRIN 81 MG CHEW TAB PO ONE (13:00)
--- NOTE | 2019-02-27 13:00 | NUR ---
DR. CUNNINGHAM IN TRIAGE FOR PT EVAL.
[2019-02-27 13:40] LABS: BASOPHILS % 0.1 % (0.0-1.0); EOSINOPHILS # (AUTO) 0.1 (0.0-0.4); EOSINOPHILS % 1.5 % (0.0-6.0); HEMATOCRIT 35.4 % (34.2-44.1); HEMOGLOBIN 10.9 g/dL (12.0-16.0); LYMPHOCYTES # (AUTO) 2.4 (1.0-3.2); LYMPHOCYTES % 32.9 % (18.0-39.1); MEAN CORPUSCULAR HEMOGLOBIN 26.6 pg (28-32); MEAN CORPUSCULAR HGB CONC 30.8 g/dL (31-35); MEAN CORPUSCULAR VOLUME 86.3 fL (81-99); MONOCYTES # (AUTO) 0.5 (0.2-0.8); MONOCYTES % 6.9 % (4.4-11.3); NEUTROPHILS # (AUTO) 4.2 (2.1-6.9); NEUTROPHILS % 58.5 % (38.7-80.0); PLATELET COUNT 256 x10e3/uL (140-360); RED CELL DISTRIBUTION WIDTH 14.6 % (11.7-14.4)
[2019-02-27 14:04] LABS: ALANINE AMINOTRANSFERASE 15 IU/L (0-55); ALBUMIN 3.3 g/dL (3.5-5.0); ALKALINE PHOSPHATASE 99 IU/L (40-150); BLOOD UREA NITROGEN 8 mg/dL (7-26); BUN/CREATININE RATIO 13 (6-25); CALCIUM 8.7 mg/dL (8.4-10.2); CARBON DIOXIDE 24 mmol/L (22-29); CHLORIDE 104 mmol/L (98-107); CREATINE KINASE 119 IU/L (29-168); CREATININE, SERUM 0.62 mg/dL (0.57-1.11); EST GLOMERULAR FILTRATION RATE > 60 ML/MIN (60-); GLUCOSE 96 mg/dL (74-118); SODIUM 138 mmol/L (136-145)
--- NOTE | 2019-02-27 14:26 | Diagnostic Imaging Report ---
CT BRAIN WO HISTORY: Nausea, lightheaded, dizziness COMPARISON: Report from MRI of the brain dated 12/27/2012 TECHNIQUE: Noncontrast axial scans were obtained from skull base to the vertex. Coronal and sagittal reconstructions obtained from the axial data. One or more of the following dose reduction techniques were used: Automated exposure control, adjustment of the mA and/or kV according to patient size, and/or utilization of iterative reconstruction technique. 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 Associated trace right mastoid effusion is present. Brain sulci: Appropriate for patient's age. Ventricles: Normal in size and configuration. No hydrocephalus. Extra-axial spaces: No masses or fluid collections. Parenchyma: No abnormal densities. No mass, hemorrhage, or large vascular territory acute infarct. Dural sinuses: No abnormal densities. Sellar/Suprasellar region: Intact. Skull base: Intact. Incidental findings: None. IMPRESSION: 1. 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 2. Otherwise, no intracranial abnormalities. Signed by: Dr. James Anglin M.D. on 02/27/2019 2:23 PM
--- NOTE | 2019-02-27 15:29 | Diagnostic Imaging Report ---
EXAMINATION: CHEST 2 VIEWS INDICATION: Chest pain COMPARISON: None FINDINGS: LINES/TUBES:None LUNGS:The lungs are moderately inflated. No focal consolidation or pulmonary edema. PLEURA:No pleural effusion or pneumothorax. MEDIASTINUM:The cardiomediastinal silhouette appears normal in size and shape. BONES/SOFT TISSUES:No acute osseous injury. ABDOMEN:No free air under the diaphragm. IMPRESSION: No focal pneumonia or pulmonary edema. Signed by: Peter Schneider MD on 02/27/2019 3:26 PM
[2019-02-27 16:39] VITALS: BP 163/87
== END 2019-02-27 16:40 | disposition home or self-care (01) ==
LOC: ER 12:40
DX: R07.89 Other chest pain (principal); R42 Dizziness and giddiness; G50.0 Trigeminal neuralgia
CPT/HCPCS: 36415; 70450; 71046; 80053; 82550; 82553; 84484; 85025; 85379; 93005; 99283

== ENCOUNTER 2019-10-24 02:29 | Emergency (ER) | payer BC ==
[~2019-10-24] VITALS: Ht 162.6 cm; Wt 127.0 kg
--- OUTSIDE RECORDS SUMMARY | 2019-10-24 02:33 | XMS REPORT | Continuity of Care Document ---
Author Author SETiTHANNA [facility] Address Unknown Phone Unavailable Care Team Providers Care Radiologic Tech Name Role Phone [facility] [employer] Information [employer] Unavailable Un available Problems Problem Status Onset Date Classification Date Reported Comments Source Sprain of anterior cruciate ligament of left knee, subsequent encounter 07/02/2018 01/14/2019 [facility] [place] Sprain of anterior cruciate ligament of left knee, initial encounter 05/31/2018 12/11/2018 [facility] LEFT KNEE Active 05/27/2018 [facility] [place] UNK Active 1 07/17/2017 [facility] KNEE ARTHROSCOPY Active 05/17/2018 [facility] TRIGEMINAL NERALGIA Active 03/29/2017 [facility] Muscle weakness (generalized) 01/14/2019 [facility] [place] Difficulty in walking, not elsewhere classified 01/14/2019 [facility] Pain in left knee 01/14/2019 [facility] Stiffness of left knee, not elsewhere classified 01/14/2019 [facility] [place] Gastroesophageal reflux disease (disorder) Active Problem 01/14/2019 [facility] [place] Migraine (disorder) Resolved Problem 01/14/2019 [facility] [place] Morbid obesity (disorder) Acti ve Problem [facility] [place] Trigeminal neuralgia (disorder) Resolved Problem [facility] [place] Nicotine dependence, cigarettes, uncomplicated 12/11/2018 [facility] 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 (Same as: Tylenol) Inactive 05/24/2018 [facility] Roxicodone Notes: (Same as: Ro xicodone) Inactive 05/24/2018 [facility] Ondansetron 4 mg, Route: IVP, ONCE, Dosing Weight 128.864, kg, PRN Nausea & Vomiting, Start date: 05/24/18 12:52:00 [employer] JOINT [employer]ILDER Inactive 05/24/2018 [facility] Naloxone 0.1 mg, Route: SUB-Q, Q6H, Dosing Weight 128.864, kg, PRN Itching, Start date: 05/24/18 12:52:00 [employer] JOINT BUILDER, Duration: 30 day, Stop date: 06/23/18 12:51:00 EXPANSION JOINT BUILDER Inactive 05/24/2018 [facility] Meperidine 12.5 mg, Route: IVP , Q30Min, Dosing Weight 128.864, kg, PRN Other -See Comment, For shivering, Start date: 05/24/18 12:52:00 EXPANSION JOINT BUILDER, Duration: 2 doses or times, Stop date: Limited # of times Inactive 05/24/2018 [facility] Flumazenil 0.2 mg, Route: IVP, PRN, Dosing Weight 128.864, kg, PRN Benzodiazepine Reversal, Initial dose, Start date: 05/24/18 12:52:00 EXPANSION JOINT BUILDER, Duration: 30 day, Stop date: 06/23/18 12:51:00 EXPANSION JOINT BUILDER Inactive 05/24/2018 [facility] Oxycodone 10 mg, Route: PO, Dr ug form: TAB, Q4H, Dosing Weight 128.864, kg, PRN Pain Score 7-10, Start date: 05/24/18 12:52:00 EXPANSION JOINT BUILDER, Duration: 30 day, Stop date: 06/23/18 12:51:00 EXPANSION JOINT BUILDER Inactive 05/24/2018 [facility] Fentanyl 25 microgram, Route: IVP, Q5Min, Dosing Weight 128.864, kg, PRN Pain Score 4-6, Priority: Routine, Start date: 05/24/18 12:52:00 EXPANSION JOINT BUILDER, Duration: 4 doses or times, Stop date: Limited # of times Inactive 05/24/2018 [facility] Hydromorphone 0.5 mg, Route: I SENIOR HR MANAGER, Q5Min, Dosing Weight 128.864, kg, PRN Pain Score 7-10, Start date: 05/24/18 12:52:00 EXPANSION JOINT BUILDER, Duration: 4 doses or times, Stop date: Limited # of times Inactive 05/24/2018 [facility] Hydralazine 10 mg, Route: IVP, Q20Min, Dosing Weight 128.864, kg, PRN Elevated BP, Start date: 05/24/18 12:52:00 EXPANSION JOINT BUILDER, Duration: 2 doses or times, Stop date: Limited # of times Inactive 05/24/2018 [facility] Labetalol 10 mg, Route: IVP, Q 5Min, Dosing Weight 128.864, kg, PRN Elevated BP, Start date: 05/24/18 12:52:00 EXPANSION JOINT BUILDER, Duration: 5 doses or times, Stop date: Limited # of times Inactive 05/24/2018 [facility] Diphenhydramine 12.5 mg, Route : IVP, Drug form: INJ, Q6H, Dosing Weight 128.864, kg, PRN Itching, Start date: 05/24/18 12:52:00 EXPANSION JOINT BUILDER, Duration: 30 day, Stop date: 06/23/18 12:51:00 EXPANSION JOINT BUILDER Inactive 05/24/2018 [facility] Albuterol 0.83 MG/ML Inhalant Solution 2.49 mg, Route: NEB, Q20Min, Dosing Weight 128.864, kg, PRN Wheezing, Priority: STAT, Start date: 05/24/18 12:52:00 EXPANSION JOINT BUILDER, Duration: 30 day, Stop date: 06/23/18 12:51:00 EXPANSION JOINT BUILDER Inactive 05/24/2018 [facility] Promethazine 6.25 mg, Route: I VPB, ONCE, Dosing Weight 128.864, kg, PRN Nausea & Vomiting, Start date: 05/24/18 12:52:00 EXPANSION JOINT BUILDER Inactive 05/24/2018 [facility] 72 HR Scopolamine 0.0139 MG/HR Transdermal Patch 1 patch, Route: TOP, Drug Form: ERFILM, Dosing Weight 128.864, kg, ONCE, Apply behind ear. Avoid use in elderly., Start date: 05/24/18 12:52:00 EXPANSION JOINT BUILDER, Stop date: 05/24/18 12:52:00 EXPANSION JOINT BUILDER Inactive 05/24/2018 [facility] neostigmine (ANES) Route: IV, Drug form: INJ, ONCE, Stop date: 05/24/18 12:49:00 EXPANSION JOINT BUILDER Inactive 05/24/2018 [facility] glycopyrrolate (ANES) Route: I V, Drug form: INJ, ONCE, Stop date: 05/24/18 12:49:00 EXPANSION JOINT BUILDER Inactive 05/24/2018 [facility] ketOROLAC (ANES) IV, ONCE Inactive 05/24/2018 [facility] Zofran Notes: (Same as: Zofran ) MEDICATION WASTE Product Size: 4 mg Product Wasted: ___ mg Inactive 05/24/2018 [facility] Acetaminophen 325 MG / Oxycodone Hydroch loride 5 MG Oral Tablet [Percocet 5/325] 2 tab, Route: PO, Drug Form: TAB, Dosing Weight 128.864, kg, Q4H, PRN Pain, Start date: 05/24/18 12:27:00 EXPANSION JOINT BUILDER, Duration: 30 day, Stop date: 06/23/18 12:26:00 EXPANSION JOINT BUILDER Inactive 05/24/2018 [facility] Morphine 2 mg, 1 mL, Route: IV P, Drug form: SOLN, Q3H, Dosing Weight 128.864, kg, PRN Pain Score 1-3, Start date: 05/24/18 12:27:00 EXPANSION JOINT BUILDER, Duration: 30 day, Stop date: 06/23/18 12:26:00 EXPANSION JOINT BUILDER Inactive 05/24/2018 [facility] rocuronium (ANES) Route: IV, D rug form: INJ, ONCE, Stop date: 05/24/18 11:24:00 EXPANSION JOINT BUILDER Inactive 05/24/2018 [facility] succinylcholine (ANES) Route: IV, Drug form: INJ, ONCE, Stop date: 05/24/18 11:20:00 EXPANSION JOINT BUILDER Inactive 05/24/2018 [facility] dexamethasone (ANES) Route: IV , Drug form: INJ, ONCE, Stop date: 05/24/18 11:20:00 EXPANSION JOINT BUILDER Inactive 05/24/2018 [facility] Cleocin Phosphate (ANES) Route : IV, Drug form: INJ, ONCE, Stop date: 05/24/18 11:20:00 EXPANSION JOINT BUILDER Inactive 05/24/2018 [facility] acetaminophen (ANES) Route: IV , Drug form: INJ, ONCE, Stop date: 05/24/18 11:20:00 EXPANSION JOINT BUILDER Inactive 05/24/2018 [facility] midazolam (ANES) Route: IV, Dr ug form: SOLN, ONCE, Stop date: 05/24/18 11:19:00 EXPANSION JOINT BUILDER Inactive 05/24/2018 [facility] propofol (ANES) Route: IV, Stone g form: INJ, ONCE, Stop date: 05/24/18 11:19:00 EXPANSION JOINT BUILDER Inactive 05/24/2018 [facility] lidocaine (ANES) Route: IV, Dr ug form: INJ, ONCE, Stop date: 05/24/18 11:19:00 EXPANSION JOINT BUILDER Inactive 05/24/2018 [facility] fentaNYL (ANES) Route: IV, Stone g form: INJ, ONCE, Stop date: 05/24/18 11:19:00 EXPANSION JOINT BUILDER Inactive 05/24/2018 [facility] ondansetron (ANES) Route: IV, Drug form: INJ, ONCE, Stop date: 05/24/18 11:14:00 EXPANSION JOINT BUILDER Inactive 05/24/2018 [facility] Lactated Ringers Injection IV (ANES) 1000 mL Route: IV, Total Volume: 1,000, Start date: 05/24/18 10:32:00 EXPANSION JOINT BUILDER, Stop date: 05/24/18 11:32:00 EXPANSION JOINT BUILDER Inactive 05/24/2018 [facility] 72 HR Scopolamine 0.0139 MG/HR Transdermal Patch 1 patch, Route: TOP, Dosing Weight 129.091, kg, ONCE, Start date: 05/24/18 9:10:00 EXPANSION JOINT BUILDER, Stop date: 05/24/18 9:10:00 EXPANSION JOINT BUILDER Inactive 05/24/2018 [facility] Calcium Chloride 0.0014 MEQ/ML / Potassi um Chloride 0.004 MEQ/ML / Sodium Chloride 0.103 MEQ/ML / Sodium Lactate 0.028 MEQ/ML Injectable Solution 1,000 mL, Rate: 25 ml/hr, Infuse over: 4 0 hr, Route: IV, Dosing Weight 129.091 kg, Total Volume: 1,000, Start date: 05/24/18 8:49:00 EXPANSION JOINT BUILDER, Duration: 30 day, Stop date: 06/23/18 8:48:00 EXPANSION JOINT BUILDER, 2.46, m2 Inactive 05/24/2018 [facility] ceFAZolin + Sodium Chloride 0.9% IV 100 mL Notes: (Same As: AncefMartínezfzol) MEDICATION WASTE Product Size: 1000 mg Product Wasted: ___ mg Inactive 05/24/2018 [facility] diazepam 10 mg oral tablet 10 mg = 1 tab, PO, TID, 0 Refill(s) Active 05/23/2018 [facility] Divalproex Sodium 500 MG Enteric Coated Tablet 500 mg = 1 tab, PO, TID, 0 Refill(s) Active 05/23/2018 [facility] amitriptyline 25 mg oral tablet 25 mg = 1 tab, PO, Bedtime, 0 Refill(s) Active 05/23/2018 [facility] tramadol hydrochloride 50 MG Oral Tablet 50 mg = 1 tab, PO, Q4H, prn pain, # 30 tab, 0 Refill(s), called to pharmacy Active 05/29/2017 [facility] Flexeril Notes: (Same As: Flex eril) No Longer Active 05/17/2017 [facility] heparin sodium, porcine 2500 UNT/ML Injectable Solutio n Notes: porcine heparin No Longer Active 05/17/2017 [facility] nter Cyclobenzaprine hydrochloride 10 MG Oral Tablet [Flexeril] 10 mg, PO, TID, PRN as needed for muscle spasm, # 30 tab, 0 Refill(s) No Longer Active 05/17/2017 [facility] Docusate Sodium 100 MG Oral Capsule 100 mg, PO, Q12H, PRN as needed for constipation, # 60 tab, 0 Refill(s) Active 05/17/2017 [facility] Ondansetron 4 MG Oral Tablet [Zofran] 4 mg = 1 tab, PO, Q8H, PRN Nausea/vomiting, # 30 tab, 0 Refill(s) Active 05/17/2017 [facility] Acetaminophen 325 MG / Hydrocodone Bright trate 10 MG Oral Tablet [[place] 10/325] 1 tab, PO, Q4H, PRN for pain, X 10 day, # 60 tab, 0 Refill(s) Active 05/17/2017 [facility] Promethazine Hydrochloride 12.5 MG Oral Tablet [Phenergan] 12.5 mg = 1 tab, PO, Q4H, PRN Nausea & V omiting, # 60 tab, 0 Refill(s) Active 05/17/2017 [facility] tramadol hydrochloride 50 MG Oral Tablet 50 mg = 1 tab, PO, Q4H, PRN Pain, X 10 day, # 60 tab, 0 Refill(s) Active 05/17/2017 [facility] nter Lipitor Notes: (Same As: Lipit or) No Longer Active 05/17/2017 [facility] vancomycin (SCIP) 2001 mg: in fuse over 2.5 hours MEDICATION WASTE Product Size: 1000 mg Product Wasted: ___ mg No Longer Active 05/17/2017 [facility] Depakote 250 mg oral enteric coated tablet Notes: (Same as: Depakote Delayed Release) Do not confuse with the extended-release tablet. Delayed absorption, enteric coated tablet. Do not crush Inactive 05/16/2017 [facility] Depakote 250 mg oral enteric coated tablet 750 mg = 3 tab, PO, BID Active 05/16/2017 [facility] glycopyrrolate (ANES) Route: I V, Drug form: INJ, ONCE, Stop date: 05/16/17 12:31:00 EXPANSION JOINT BUILDER Inactive 05/16/2017 [facility] nter neostigmine (ANES) Route: IV, Drug form: INJ, ONCE, Stop date: 05/16/17 12:31:00 EXPANSION JOINT BUILDER Inactive 05/16/2017 [facility] nter Promethazine 6.25 mg, Route: I VPB, ONCE, Dosing Weight 127.273, kg, PRN Nausea & Vomiting, Start date: 05/16/17 12:23:00 EXPANSION JOINT BUILDER Inactive 05/16/2017 [facility] ondansetron (ANES) Route: IV, Drug form: INJ, ONCE, Stop date: 05/16/17 11:48:00 EXPANSION JOINT BUILDER Inactive 05/16/2017 [facility] nter famotidine (ANES) Route: IV, D rug form: INJ, ONCE, Stop date: 05/16/17 11:23:00 EXPANSION JOINT BUILDER Inactive 05/16/2017 [facility] nter acetaminophen (ANES) 10 mg Rou te: IV, Drug form: INJ, Start date: 05/16/17 10:23:00 EXPANSION JOINT BUILDER, Stop date: 05/16/17 11:23:00 EXPANSION JOINT BUILDER Inactive 05/16/2017 [facility] Hydromorphone Notes: Same as D ilaudid Inactive 05/16/2017 [facility] Flumazenil Notes: (Same as: Ro mazicon) Inactive 05/16/2017 [facility] Dexamethasone Notes: Concentra tion: 4mg/ml Inactive 05/16/2017 [facility] Ondansetron Notes: (Same as: Silva salazar) MEDICATION WASTE Product Size: 4 mg Product Wasted: ___ mg Inactive 05/16/2017 [facility] Diphenhydramine Notes: (Same a s: Benadryl) Inactive 05/16/2017 [facility] Naloxone Notes: Same as Narcan Inactive 05/16/2017 [facility] Oxycodone Notes: (Same as: Randi icodone) Inactive 05/16/2017 [facility] Hydralazine Notes: (Same as: A presoline) Push over 5 minutes Inactive 05/16/2017 [facility] Labetalol 10 mg, 2 mL, Route: IVP, Drug form: INJ, Q5Min, Dosing Weight 127.273, kg, PRN Elevated BP, Start date: 05/16/17 9:33:00 EXPANSION JOINT BUILDER, Duration: 5 doses or times, Stop date: 05/17/17 0:00:00 EXPANSION JOINT BUILDER Inactive 05/16/2017 [facility] dexamethasone (ANES) Route: IV , Drug form: INJ, ONCE, Stop date: 05/16/17 9:23:00 EXPANSION JOINT BUILDER Inactive 05/16/2017 [facility] nter midazolam (ANES) Route: IV, ug form: SOLN, ONCE, Stop date: 05/16/17 9:18:00 EXPANSION JOINT BUILDER Inactive 05/16/2017 [facility] nter lidocaine (ANES) Route: IV, ug form: INJ, ONCE, Stop date: 05/16/17 9:18:00 EXPANSION JOINT BUILDER Inactive 05/16/2017 [facility] nter remifentanil (ANES) Route: IV, Drug form: INJ, ONCE, Stop date: 05/16/17 9:18:00 EXPANSION JOINT BUILDER Inactive 05/16/2017 [facility] nter propofol (ANES) Route: IV, Stone g form: INJ, ONCE, Stop date: 05/16/17 9:13:00 EXPANSION JOINT BUILDER Inactive 05/16/2017 [facility] nter rocuronium (ANES) Route: IV, D rug form: INJ, ONCE, Stop date: 05/16/17 9:13:00 EXPANSION JOINT BUILDER Inactive 05/16/2017 [facility] nter fentaNYL (ANES) Route: IV, Stone g form: INJ, ONCE, Stop date: 05/16/17 9:13:00 EXPANSION JOINT BUILDER Inactive 05/16/2017 [facility] nter ePHEDrine (ANES) Route: IV, Dr ug form: INJ, ONCE, Stop date: 05/16/17 9:08:00 EXPANSION JOINT BUILDER Inactive 05/16/2017 [facility] nter phenylephrine (ANES) Route: IV , Drug form: INJ, ONCE, Stop date: 05/16/17 9:08:00 EXPANSION JOINT BUILDER Inactive 05/16/2017 [facility] Saline Flush 0.9% Notes: (Same as: BD Posiflush) No Longer Active 05/16/2017 [facility] Docusate Notes: (Same as: Cola ce) (Do Not Crush) No Longer Active 05/16/2017 [facility] sennosides, CUSTODIAL Notes: (Same a s: Senokot) No Longer Active 05/16/2017 [facility] Vancomycin 2001 mg: infuse ov er 2.5 hours MEDICATION WASTE Product Size: 1000 mg Product Wasted: ___ mg Inactive 05/16/2017 [facility] Protonix Notes: Tablet should not be chewed or crushed. (Same as: Protonix) No Longer Active 05/16/2017 [facility] Prilosec 20 mg, Route: PO, Stone g form: DRC, Daily, Dosing Weight 127.273, kg, Start date: 05/16/17 9:00:00 EXPANSION JOINT BUILDER, Duration: 30 day, Stop date: 06/14/17 9:00:00 EXPANSION JOINT BUILDER Inactive 05/16/2017 [facility]ter Lexapro Notes: (Same as: Lexap ro) No Longer Active 05/16/2017 [facility] divalproex sodium 250 mg oral enteric co ated tablet (Depakote) Notes: (Same as: Depakote Delayed Releas e) Do not confuse with the extended-release tablet. Delayed absorption, enteric coated tablet. No Longer Active 05/16/2017 [facility] propofol (ANES) 10 mg Route: I V, Drug form: INJ, Start date: 05/16/17 8:38:00 EXPANSION JOINT BUILDER, Stop date: 05/16/17 9:38:00 EXPANSION JOINT BUILDER Inactive 05/16/2017 [facility] Sodium Chloride 0.9% IV (ANES) 1000 mL Route: IV, Total Volume: 1,000, Start date: 05/16/17 8:00:00 EXPANSION JOINT BUILDER, Stop date: 05/16/17 9:00:00 EXPANSION JOINT BUILDER Inactive 05/16/2017 [facility] remifentanil (ANES) 2 mg Route : IV, Drug form: INJ, Start date: 05/16/17 7:55:00 EXPANSION JOINT BUILDER, Stop date: 05/16/17 8:55:00 EXPANSION JOINT BUILDER Inactive 05/16/2017 [facility] Sodium Chloride 0.9% IV (ANES) 235 mL + vancomycin (ANES) 1500 mg Route: IV, Drug form: INJ, Start date: 1 07/16/16 7:45:00 EXPANSION JOINT BUILDER, Stop date: 05/16/17 8:45:00 EXPANSION JOINT BUILDER Inactive 05/16/2017 [facility] nt dexmedetomidine (ANES) 200 microgram Route: IV, Drug form: INJ, Start date: 05/16/17 7:45:00 EXPANSION JOINT BUILDER, Stop date: 05/16/17 8:45:00 EXPANSION JOINT BUILDER Inactive 05/16/2017 [facility] tramadol hydrochloride 50 MG Oral Tablet Notes: (Same As: Ultram) No Longer Active 05/16/2017 [facility] Dilaudid Notes: Same as Dilaud id No Longer Active 05/16/2017 [facility] Saline Flush 0.9% Notes: (Same as: BD Posiflush) No Longer Active 05/16/2017 [facility] Bisacodyl Notes: (Same As: Dul colax, Bisco-Lax) No Longer Active 05/16/2017 [facility] Promethazine Notes: Do not giv e IV push. (Same as: Phenergan) No Longer Active 05/16/2017 [facility] Ondansetron Notes: (Same as: Silva salazar) MEDICATION WASTE Product Size: 4 mg Product Wasted: ___ mg No Longer Active 05/16/2017 [facility] Acetaminophen Notes: Do not ex ceed 4 gm/day. (Same as: Tylenol) No Longer Active 05/16/2017 [facility] Sodium Chloride 0.9% IV 1,000 mL 1,000 mL, Rate: 75 ml/hr, Infuse over: 13.3 hr, Route: IV, Dosing Weight 127.273 kg, Total Volume: 1,000, Start date: 05/16/17 7:32:00 EXPANSION JOINT BUILDER, Stop date: 06/15/17 7:31:00 EXPANSION JOINT BUILDER, 2.44, m2 No Longer Active 05/16/2017 [facility] Acetaminophen 325 MG / Hydrocodone Bright trate 10 MG Oral Tablet Notes: Do not exceed 4gm/day of acetamin ophen. (Same as: [place] 325/10) No Longer Active 05/16/2017 [facility] Acetaminophen 325 MG / Hydrocodone Bright trate 5 MG Oral Tablet Notes: (Same as: [place] 325/5) Do not ex ceed 4gm/day of acetaminophen. No Longer Active 05/16/2017 [facility] Lactated Ringers Injection IV (ANES) 1000 mL Route: IV, Total Volume: 1,000, Start date: 05/16/17 7:26:00 EXPANSION JOINT BUILDER, Stop date: 05/16/17 8:26:00 EXPANSION JOINT BUILDER Inactive 05/16/2017 [facility] vancomycin 2001 mg: infuse ov er 2.5 hours No Longer Active 05/16/2017 [facility] Allergies, Adverse Reactions, Alerts Substance Category Reaction Severity Reaction type Status Date Reported Comments Source penicillins Assertion Drug allergy Active [facility] [place] amoxicillin Assertion Propensity to adverse reacti ons to drug Active [facility] [place] Immunizations No Data Provided for This Section Results Order Name Results Value Reference Range Date Interpretation Comments Source URINE CHEM U Preg Negat brady (05/23/18 3:24 PM) Negative 05/23/2018 [facility] ELECTROLYTES AGAP 19.1 10.0 - 20.0 05/16/2017 [facility] ELECTROLYTES eGFR 107 05/16/2017 Result [...] should be multiplied by the estimated BMI. [facility] ELECTROLYTES CO2 19 24 - 32 05/16/2017 [facility] ELECTROLYTES Calcium Lvl 7.4 8.5 - 10.5 05/16/2017 [facility] ELECTROLYTES Creatinine Lvl 0.7 3 0.50 - 1.40 05/16/2017 [facility] ELECTROLYTES BUN 17 7 - 22 05/16/2017 [facility] ELECTROLYTES Glucose Lvl 168 70 - 99 05/16/2017 [facility] ELECTROLYTES Sodium Lvl 138 135 - 145 05/16/2017 [facility] ELECTROLYTES Chloride Lvl 105 95 - 109 05/16/2017 [facility] ELECTROLYTES Potassium Lvl 5.1 3.5 - 5.1 05/16/2017 [facility] HEMATOLOGY Monocytes # 0.3 0.0 - 0.8 05/16/2017 [facility] HEMATOLOGY Lymphocytes 9.6 20.0 - 40.0 05/16/2017 [facility] HEMATOLOGY Monocytes 2.5 2.0 - 12.0 05/16/2017 [facility] HEMATOLOGY Eosinophils 0.2 0.0 - 4.0 05/16/2017 [facility] HEMATOLOGY Lymphocytes # 1.1 1.0 - 5.5 05/16/2017 [facility] HEMATOLOGY Basophils 0.2 0.0 - 1.0 05/16/2017 [facility] HEMATOLOGY Segs-Bands # 10.2 1.5 - 8.1 05/16/2017 [facility] HEMATOLOGY Segs 87.5 45.0 - 75.0 05/16/2017 [facility] HEMATOLOGY MPV 7.4 7.4 - 10.4 05/16/2017 [facility] HEMATOLOGY Platelet 191 133 - 450 05/16/2017 [facility] HEMATOLOGY RDW 15.6 11.5 - 14.5 05/16/2017 [facility] HEMATOLOGY MCHC 32.2 32.0 - 36.0 05/16/2017 [facility] HEMATOLOGY WBC 11.7 3.7 - 10.4 05/16/2017 [facility] HEMATOLOGY MCH 27.6 27.0 - 31.0 05/16/2017 [facility] HEMATOLOGY Hct 33.3 36.0 - 48.0 05/16/2017 [facility] HEMATOLOGY MCV 85.8 80.0 - 98.0 05/16/2017 [facility] HEMATOLOGY Hgb 10.7 12.0 - 16.0 05/16/2017 [facility] HEMATOLOGY RBC 3.88 4.20 - 5.40 05/16/2017 [facility] BLOOD BANK RESULTS ABO/Rh O POS 05/16/2017 [facility] BLOOD BANK RESULTS Antibody Scrn Negative (05/16/17 5:56 AM) 05/16/2017 [facility] Pathology Reports No Data Provided for This Section Diagnostic Reports No Data Provided for This Section Consultation Notes No Data Provided for This Section Discharge Summaries No Data Provided for This Section History and Physicals No Data Provided for This Section Vital Signs Vital Sign Value Date Comments Source Systolic (mm Hg) 106 05/24/2018 [facility] Diastolic (mm Hg) 68 05/24/2018 [facility] Respitory Rate 13 05/24/2018 [facility] Systolic (mm Hg) 103 05/24/2018 [facility] Diastolic (mm Hg) 54 05/24/2018 [facility] Respitory Rate 12 05/24/2018 [facility] Systolic (mm Hg) 121 05/24/2018 [facility] Diastolic (mm Hg) 53 05/24/2018 [facility] Respitory Rate 28 05/24/2018 [facility] BMI Calculated 48.76 05/24/2018 [facility] Weight 128.864 05/24/2018 [facility] Temperature Oral (F) 98.2 F 05/23/2018 [facility] Heart Rate 105 05/23/2018 [facility] Height 162.56 cm 05/23/2018 [facility] BMI Calculated 50.19 08/13/2017 [facility] Weight 132.636 08/13/2017 [facility] Height 162.56 cm 08/13/2017 [facility] Temperature Oral (F) 98 F 08/13/2017 [facility] Heart Rate 76 08/13/2017 [facility] Systolic (mm Hg) 128 08/13/2017 [facility] Diastolic (mm Hg) 79 08/13/2017 [facility] Height 162.56 cm 05/29/2017 [facility] BMI Calculated 48.68 05/29/2017 [facility] Weight 128.636 05/29/2017 [facility] Systolic (mm Hg) 112 05/29/2017 [facility] Diastolic (mm Hg) 68 05/29/2017 [facility] Heart Rate 103 05/29/2017 [facility] Temperature Oral (F) 98.0 F 05/29/2017 [facility] Heart Rate 103 05/18/2017 [facility] Temperature Oral (F) 99.1 F 05/18/2017 [facility] Respitory Rate 16 05/18/2017 [facility] Systolic (mm Hg) 116 05/18/2017 [facility] Diastolic (mm Hg) 75 05/18/2017 [facility] Temperature Oral (F) 100.1 F 05/18/2017 [facility] Systolic (mm Hg) 115 05/18/2017 [facility] Diastolic (mm Hg) 71 05/18/2017 [facility] Respitory Rate 16 05/18/2017 [facility] Heart Rate 111 05/18/2017 [facility] Respitory Rate 16 05/18/2017 [facility] Systolic (mm Hg) 110 05/18/2017 [facility] Diastolic (mm Hg) 73 05/18/2017 [facility] Temperature Oral (F) 98.6 F 05/18/2017 [facility] Heart Rate 105 05/18/2017 [facility] BMI Calculated 48.16 05/17/2017 [facility] Weight 127.273 05/17/2017 [facility] Height 162.56 cm 05/17/2017 [facility] BMI Calculated 48.16 05/15/2017 [facility] Weight 127.273 05/15/2017 [facility] Height 162.56 cm 05/15/2017 [facility] Systolic (mm Hg) 125 05/15/2017 [facility] Diastolic (mm Hg) 85 05/15/2017 [facility] Temperature Oral (F) 98.1 F 05/15/2017 [facility] Heart Rate 92 05/15/2017 [facility] Systolic (mm Hg) 141 05/08/2017 [facility] Diastolic (mm Hg) 91 05/08/2017 [facility] BMI Calculated 48.16 05/08/2017 [facility] Weight 127.273 05/08/2017 [facility] Height 162.56 cm 05/08/2017 [facility] Encounters Location Location Details Encounter Type Encounter Number Reason For Visit Attending Provider ADM Date DC Date Status Source Outpatient [id number] ERROL GIBSON 01/10/2017 [facility] Out[facility] [id number] JONG HARE 02/20/2017 Active [facility] TM Phone Message [id number] 05/01/2017 05/03/2017 [facility] TM Phone Message [id number] 05/14/2017 05/16/2017 [facility] [id number] JONG HARE 05/15/2017 [facility] [place] [id number] Jong Hare 05/15/2017 05/16/2017 [facility] [id number] JONG HARE 05/16/[address] [facility] Inpatient [id number] Jong Hare 05/16/2017 05/18/2017 [facility] [place] [id number] Jong Hare 05/16/2017 05/17/2017 [facility] TM Phone Message [id number] 05/23/2017 05/25/2017 [facility] [id number] JONG HARE 05/29/2017 [facility] [place] [id number] Jong Hare 05/29/2017 05/30/2017 [facility] TM Phone Message [id number] 06/15/2017 06/17/2017 [facility] TM Phone Message [id number] 2017 08/12/2017 [facility] [id number] SYDNI LIM 08/13/2017 [facility] Outpatient [id number] Jaime Rust 08/13/2017 08/14/2017 [facility] [id number] Nacho Juárez Jr 05/24/2018 05/24/2018 [facility] [place] [facility] Patients [id number] Nacho Juárez Jr 05/28/2018 06/27/2018 [facility] [place] Procedures Procedure Code Date Perfomer Comments Source Appendectomy [id number] [facility] [place] Ca[facility]arean section [id number] [facility] [place] Cholecystectomy [id number] [facility] [place] Microvascular decompression surgery of cranial nerve [id number] [facility] [place] Tonsillectomy [id number] [facility] [place] Assessment and Plan No Data Provided for [...] Counseling No entered on: 08/13/17 05/08/2017 [facility] Social History TypeResponse Substance Abuse Use: None. Alcohol Current, Frequency: 1-2 times per week. Smoking Status Current some day smoker; Type: Cigarettes; Previous treatment: None; Ready to change: No; Concerns about tobacco use in household: No; Exposure to Tobacco Smoke None; Cigarette Smoking Last 365 Days Yes; Reg Smoking Cessation Counseling No 05/08/2017 [facility] Social History TypeResponse Substance Abuse Use: None. Alcohol Current Smoking Status Current every day smoker; Type: Cigarettes; Previous treatment: None; Ready to change: No; Concerns about tobacco use in household: No; Exposure to Tobacco Smoke None; Cigarette Smoking Last 365 Days Yes; Reg Smoking Cessation Counseling No; Other Tobacco Frequency 3-4 cigarrettes; entered on: 05/23/18 [facility] Social History TypeResponse Substance Abuse Use: None. Alcohol Current Smoking Status Current every day smoker; Type: Cigarettes; Previous treatment: None; Ready to change: No; Concerns about tobacco use in household: No; Exposure to Tobacco Smoke None; Cigarette Smoking Last 365 Days Yes; Reg Smoking Cessation Counseling No; Other Tobacco Frequency 3-4 cigarrettes; entered on: 05/23/18 05/08/2017 [facility] Family History No Data Provided for This Section Advance Directives No Data Provided for This Section Functional Status No Data Provided for This Section
[2019-10-24] MEDS ORDERED: ONDANSETRON HCL INJ 2MG/ML 2ML 2 MG/ML VIAL IV STA (02:42)
[2019-10-24] MEDS ORDERED: SODIUM CHLORIDE 0.9% 1000ML 1,000 ML IV ONE (02:45)
[2019-10-24 03:51] LABS: BASOPHILS % 0.2 % (0.0-1.0); EOSINOPHILS # (AUTO) 0.1 (0.0-0.4); EOSINOPHILS % 1.1 % (0.0-6.0); HEMATOCRIT 38.4 % (34.2-44.1); HEMOGLOBIN 11.9 g/dL (12.0-16.0); LYMPHOCYTES # (AUTO) 2.1 (1.0-3.2); LYMPHOCYTES % 19.7 % (18.0-39.1); MEAN CORPUSCULAR HEMOGLOBIN 26.3 pg (28-32); MEAN CORPUSCULAR VOLUME 84.8 fL (81-99); MONOCYTES # (AUTO) 0.7 (0.2-0.8); MONOCYTES % 6.2 % (4.4-11.3); NEUTROPHILS # (AUTO) 7.8 (2.1-6.9); NEUTROPHILS % 72.6 % (38.7-80.0); PLATELET COUNT 258 x10e3/uL (140-360); RED BLOOD COUNT 4.53 x10e6/uL (3.6-5.1); RED CELL DISTRIBUTION WIDTH 14.5 % (11.7-14.4)
[2019-10-24 04:04] LABS: ALANINE AMINOTRANSFERASE 23 IU/L (0-55); ALBUMIN 3.4 g/dL (3.5-5.0); ALBUMIN/GLOBULIN RATIO 0.9 (0.8-2.0); ALKALINE PHOSPHATASE 100 IU/L (40-150); ANION GAP 15.2 mmol/L (8-16); BLOOD UREA NITROGEN 9 mg/dL (7-26); BUN/CREATININE RATIO 14 (6-25); CARBON DIOXIDE 24 mmol/L (22-29); CHLORIDE 103 mmol/L (98-107); CREATINE KINASE 69 IU/L (29-168); CREATININE, SERUM 0.66 mg/dL (0.57-1.11); EST GLOMERULAR FILTRATION RATE > 60 ML/MIN (60-); GLUCOSE 131 mg/dL (74-118); POTASSIUM 4.2 mmol/L (3.5-5.1); SODIUM 138 mmol/L (136-145)
--- NOTE | 2019-10-24 04:04 | Diagnostic Imaging Report ---
History:Syncope, dizziness Comparison studies: Head CT on 02/27/2019 Technique: Axial images were obtained from the skull base to the vertex. Coronal and sagittal reconstructions obtained from the axial data. Dose modulation, iterative reconstruction, and/or weight based adjustment of the mA/kV was utilized to reduce the radiation dose to as low as reasonably achievable. Intravenous contrast: None Findings: Scalp/skull: No acute fractures, blastic or lytic lesions. Unchanged thickening and sclerosis of the lateral aspect of the right occipital bone is the result of surgical retromastoid craniotomy (series 3, image 4). Extra-axial spaces: No masses. No fluid collections. Brain sulci: Appropriate for age. Ventricles: Normal in size and configuration. No hydrocephalus. Parenchyma: No abnormal densities. No masses, hemorrhage, acute or chronic cortical vascular insults. Sellar/suprasellar region: Incidental partial empty sella. Craniocervical junction: Patent foramen magnum. No Chiari one malformation. Incidental findings: None. IMPRESSION: 1. No intracranial abnormalities. 2. No changes when compared to the head CT on 02/27/2019. 3. Unchanged old right retromastoid craniotomy. Signed by: Dr. Bib Gaytan M.D. on 10/24/2019 4:01 AM
--- NOTE | 2019-10-24 04:22 | Diagnostic Imaging Report ---
EXAMINATION: CHEST SINGLE (PORTABLE) INDICATION: Near syncope COMPARISON: None FINDINGS: TUBES and LINES: None. LUNGS: Low lung volumes. Lungs are clear. No consolidations. PLEURA: No pleural effusion or pneumothorax. HEART AND MEDIASTINUM: The cardiomediastinal silhouette is unremarkable. BONES AND SOFT TISSUES: No acute osseous lesion. Soft tissues are unremarkable. UPPER ABDOMEN: No free air under the diaphragm. IMPRESSION: Low lung volumes. Signed by: Clarence Kelley DO on 10/24/2019 4:18 AM
[2019-10-24 04:47] LABS: AMPHETAMINES SCREEN,URINE NEGATIVE (NEGATIVE); BENZODIAZEPINES SCREEN,URINE POSITIVE (NEGATIVE); PHENCYCLIDINE SCREEN,URINE NEGATIVE (NEGATIVE); PREGNANCY TEST, URINE NEGATIVE (NEGATIVE)
[2019-10-24 04:53] LABS: BILIRUBIN,URINE NEGATIVE (NEGATIVE); CLARITY,URINE CLEAR (CLEAR); COLOR,URINE YELLOW (YELLOW); KETONES,URINE NEGATIVE (NEGATIVE); LEUKOCYTE ESTERASE ,URINE NEGATIVE (NEGATIVE); NITRITE,URINE NEGATIVE (NEGATIVE); PROTEIN,URINE DIPSTICK NEGATIVE (NEGATIVE); URINE UROBILINOGEN 0.2 mg/dL (0.2 - 1)
[2019-10-24 04:59] LABS: BACTERIA,URINE MANY /HPF; EPITHELIAL CELLS,URINE MANY /LPF
[2019-10-24 05:18] VITALS: BP 134/82
== END 2019-10-24 05:35 | disposition home or self-care (01) ==
LOC: ER 02:29
DX: R55 Syncope and collapse (principal); R11.0 Nausea; N30.90 Cystitis, unspecified without hematuria; R51 Headache; E78.5 Hyperlipidemia, unspecified; K21.9 Gastro-esophageal reflux disease without esophagitis; Z87.891 Personal history of nicotine dependence
CPT/HCPCS: 36415; 70450; 71045; 80053; 80307; 81001; 81025; 82550; 82553; 83735; 84484; 85025; 93005; 99284; J2405; J7030

== ENCOUNTER 2022-12-17 15:16 | Emergency (ER) | payer BC ==
[~2022-12-17] VITALS: Ht 162.6 cm; Wt 127.0 kg
[2022-12-17 15:20] VITALS: O2SAT 99
[2022-12-17] MEDS ORDERED: TETANUS/DIPHTHERIA TOX ADULT 0.5 ML SYR IM ONE (16:00)
== END 2022-12-17 16:52 | disposition home or self-care (01) ==
LOC: ER 15:54
DX: S01.112A Laceration without foreign body of left eyelid and periocular area, initial encounter (principal); Z23 Encounter for immunization; E78.5 Hyperlipidemia, unspecified; K21.9 Gastro-esophageal reflux disease without esophagitis; Z79.899 Other long term (current) drug therapy; W22.09XA Striking against other stationary object, initial encounter; Y92.009 Unspecified place in unspecified non-institutional (private) residence as the place of occurrence of the external cause
CPT/HCPCS: 90714; 99283